=== PATIENT | female | born 1950 | race Caucasian/White ===

== ENCOUNTER → 2019-08-03 | Day surgery (SDC) | payer OTHER ==
--- NOTE | 2019-08-03 12:50 | RAD REPORT ---
EXAM DESCRIPTION: US - Breast Core BX w/US Guidance - 08/03/2019 12:24 pm CLINICAL HISTORY: N63.0 COMPARISON: Breast ultrasound July 25, 2019 TECHNIQUE: The patient presents for ultrasound-guided biopsy of a previously detailed 2 centimeter m ass in the upper outer quadrant right breast. The ultrasound-guided core biopsy procedure, risks and alternatives were discussed with the patient i n detail. After answering all questions, both oral and written consent were obtained. Time out proced ure was performed. The patient had no contraindicated allergy or medication history. Preliminary imaging identified the right breast mass. The anterior breast was prepped and draped in t he usual sterile fashion. From a lateral approach, skin and deeper tissues were anesthetized with 1% lidocaine. Under direct sonographic visualization a 14 gauge vacuum assisted core biopsy needle was a dvanced and placed at the lateral margin of the mass. There were a total of 3 core biopsies obtained under direct sonographic guidance. The mass did appear to have distortion in contour supporting trans it of the biopsy needle through the small mass. At the conclusion of the procedure a localization clip was placed under sonographic guidance. Post biopsy imaging showed no hematoma or measurable bleeding within the breast. Hemostasis was obtai jesse at the skin site with a sterile bandage placed. Post procedure care and precaution instructions were given to the patient. IMPRESSION: 1. Ultrasound-guided core biopsy was performed of the right breast upper-outer quadrant mass. All obtained material was given to pathology for histologic assessment. 2. Post biopsy localization clip was placed under ultrasound guidance.
== END ==
LOC: RAD 10:56
PROVIDERS: ATTEND Physician Assistant
DX: C50.411 Malignant neoplasm of upper-outer quadrant of right female breast (principal); Z17.0 Estrogen receptor positive status [ER+]
CPT/HCPCS: 19083; 88305

== ENCOUNTER 2020-03-29 13:50 | Emergency (ER) | payer OTHER ==
--- OUTSIDE RECORDS SUMMARY | 2020-03-29 13:54 | XMS REPORT | Continuity of Care Document ---
:1950 Author Organization [facility] t Address [address] Ramirez [address] [place] [address] Care Team Providers Name Role Phone Shekhar SAUCEDO Primary Care Physician Unavailable ROLAND Attending Clinician Unavailable Roland FU Attending Clinician Shekhar SAUCEDO Attending Clinician Unavailable Shekhar Saucedo MD Attending Clinician Tyrone Silva RN Attending Clinician Unavailable Ginger Finn MD Attending Clinician GINGER FINN Attending Clinician Unavailable Marybeth Ledbetter Attending Clinician Salena Ulloa NP Attending Clinician Hyun FU Attending Clinician Brunilda FU Attending Clinician Marybeth Mccarthy RN Attending Clinician Unavailable Osito GONZALEZ Attending Clinician Faye FU Attending Clinician Tete FU Attending Clinician Unavailable Harjeet Back Attending Clinician Yari GONZALEZ Attending Clinician Ozzy Crawford MD Attending Clinician Arabella Ghotra MA Attending Clinician Unavailable Nan GONZALEZ Attending Clinician Nathalie GONZALEZ Attending Clinician Dedra Mcneill NP Attending Clinician Reji FU Attending Clinician Adrian OJEDA, Tyrone Attending Clinician Pancho CARVAJAL, M Attending Clinician Douglas FU Attending Clinician Deepak OWENS, A. Attending Clinician Dedra Chappell MD Attending Clinician Payers Payer Name Policy Type Policy Number Effective Date Expiration Date S isidro MEDICARE PART A AND [id number] 2017 B 00:00:00 AETNA NON [id number] 2000 CONTRACTED 00:00:00 Problems Condition Condition Condition Status Onset Resolution Last Treating Co mments Source Name Details Category Date Date Treatment Clinician Date Encounter Encounter Disease Active for for 2-11 Anderso preprocedu preprocedu 00:00: n ral ral 00 examinatio examinatio n n Sleep Sleep Disease Active Overview: apnea apnea 2-11 Intoleran Anderso 00:00: t to CPAP n 00 Dyslipidem Dyslipidem Disease Active Overview : ia ia 2-11 Intoleran Anderso 00:00: t to n 00 statinsOn Niacin Hypothyroi Hypothyroi Disease Active 2019-0 M D dism dism 10-10 Anderso 00:00: n 00 Type 2 Type 2 Disease Active Overview: diabetes diabetes 2-11 HgbA1c Esvin o mellitus mellitus 00:00: 6.4 n 00 10/10/2019 Cancer of Cancer of Disease Active Overview: upper-oute upper-oute 1-15 Added An derso r quadrant r quadrant 00:00: automatic n of right of right 00 ally from female female request breast breast for surgery [id number] 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 Family History Family Member Diagnosis Comments Start Date Stop Date Source Natural brother Adrenal tumor MD Paulson wesleyharlan Natural brother Lung cancer Rodrigue son Natural father Brain cancer Rodrigue son Natural mother Leukemia MD Jeannie augustine Family member Bleeding Disorder MD Martino nderson Family member Coronary artery disease MD Mcclendon Family member Diabetes MD Mcclendon Family member Hypertension MD Mcallister on Family member Stroke MD Mcclendon Family member VTE MD Mcclendon Social History Social Habit Start Date Stop Date Quantity Comments Source History [facility] MD Mcclendon Alcohol Std Drinks History [facility] MD Mcclendon Alcohol Binge Sex Assigned At MD Mcallister on Exposure to Not sure MD Mcclendon SARS-CoV-2 (event) Tobacco use and 2020-01-20 2020-01-20 Never used MD Mcallister on exposure 00:00:00 00:00:00 Alcohol intake 2020-01-20 2020-01-20 Lifetime MD Jeannie augustine 00:00:00 00:00:00 non-drinker (finding) History [facility] 2019-09-12 2019-09-12 1 MD Mcclendon Alcohol Frequency 00:00:00 00:00:00 Smoking Status Start Date Stop Date Source Never smoker MD Mcclendon Medications Ordered Filled Start Stop Current Ordering Indication Dosage Frequency Signature Comments Components Source Medication Medication Date Date Medication? Clinician (SIG) Name Name acetaminoph 2020-0 Yes 500mg Take 500 M D en 7-09 mg by Anderso (TYLENOL) 18:46: mouth n 500 mg 53 every 6 tablet (six) hours as needed for mild pain. niacin 500 2019-0 Yes 500mg Take 500 MD mg tablet 7-09 mg by Anderso 18:46: mouth n 53 daily with breakfast. UNABLE TO 2020-0 Yes 1{capsu Take 1 MD FIND 7-09 le} capsule by Anderso 18:46: mouth n 53 daily. Med Name: Tumeric traMADol 2020-0 Yes 50mg Take 50 mg MD (ULTRAM) 50 7-09 by mouth 2 An derso mg tablet 18:46: (two) n 53 times a day as needed. TURMERIC 2020-0 Yes 1{capsu Take 1 MD ORAL 7-09 le} capsule by Anderso 18:46: mouth n 53 daily. anastrozole 2020-0 Yes Personal 1mg Take 1 MD (ARIMIDEX) 5-26 history of tablet (1 Anderso 1 mg tablet 00:00: malignant mg) by n 00 neoplasm of mouth breast daily. anastrozole 2019- No Personal 1mg Take 1 MD (ARIMIDEX) 5- 05-26 history of tablet (1 Anderso 1 mg tablet 00:00: 00:00 malignant mg) by n 00 :00 neoplasm of mouth breast daily. anastrozole 2019- No Personal 1mg Take 1 MD (ARIMIDEX) 3 05-26 history of tablet (1 Anderso 1 mg tablet 00:00: 00:00 malignant mg) by n 00 :00 neoplasm of mouth breast daily. HYDROcodone 2019-0 Yes Infiltratin 1{tbl} Take 1 MD -acetaminop 3-13 g duct tablet by A davidrshyacinth romero ([employer]) 00:00: carcinoma mouth n 5 mg-325 mg 00 of every 6 per tablet overlapping (six) sites of hours as right needed for female moderate breast pain. mupirocin Yes Cancer of Apply MD (BACTROBAN) 2-25 upper-outer topically Anderso 2% ointment 00:00: quadrant of to n 00 right affected female area(s) breast, not twice otherwise daily. specified traMADol 2019- No 1{tbl} Take 1 MD (ULTRAM) 50 2-21 03-13 tablet by An derso mg tablet 00:00: 00:00 mouth 2 n 00 :00 (two) times a day as needed. HYDROcodone 2019- No Cancer of 1{tbl} Take 1 MD -acetaminop 2-14 02-25 upper-outer tablet by Anderso hen ([employer]) 00:00: 00:00 quadrant of mouth n 5 mg-325 mg 00 :00 right every 6 per tablet female (six) breast, not hours as otherwise needed for specified severe pain. sulfamethox 2019- No Cancer of 1{tbl} Take 1 MD azole-trime 2-14 02-20 upper-outer tablet by Anderso thoprim 00:00: 05:59 quadrant of mouth n (Bactrim 00 :00 right twice DS) 800 female daily for mg-160 mg breast, not 5 days. per tablet otherwise specified traMADol No Infiltratin 50mg Take 1 MD (ULTRAM) 50 2-14 02-14 g duct tablet (50 Anderso mg tablet 00:00: 00:00 carcinoma mg) by n 00 :00 of mouth overlapping every 6 sites of (six) right hours as female needed for breast severe pain. traMADol 2019- No 1{tbl} Take 1 MD (ULTRAM) 50 1-03 02-15 tablet by An derso mg tablet 00:00: 00:00 mouth n 00 :00 daily. gabapentin 2018-08 Yes 1{tbl} Take 1 MD (NEURONTIN) 1-26 tablet by And erso 600 mg 00:00: mouth 3 n tablet 00 (three) times a day. levothyroxi 2018-08 Yes 1{tbl} Take 1 MD ne 1-22 tablet by Anderso (SYNTHROID, 00:00: mouth n LEVOTHROID) 00 daily. 125 mcg tablet FARXIGA 5 Yes 5mg Take 5 mg MD mg tab 2-22 by mouth Anderso 00:00: daily. n 00 Vital Signs Vital Name Observation Time Observation Value Comments Source Systolic blood pressure 2020-03-07 18:28:26 158 mm[Hg] MD Mcclendon Diastolic blood pressure 2020-03-07 18:28:26 81 mm[Hg] MD Mcclendon Heart rate 2020-03-07 18:28:26 75 /min MD Rodrigue owen Body temperature 2020-03-07 18:28:26 36.61 Anson MD Salena delatorre Respiratory rate 2019-11-21 13:06:00 17 /min MD Salena delatorre Body weight 2019-11-21 13:06:00 83.6 kg MD Rodrigue owen BMI 2019-11-21 13:06:00 29.80 kg/m2 MD Rodrigue owen Oxygen saturation in 2019-11-21 13:06:00 98 /min MD Mcclendon Arterial blood by Pulse oximetry Body height 2019-10-12 20:02:54 167.5 cm MD Rodrigue owen Procedures Procedure Date / Time Performed Performing Clinician [facility] e SURGICAL HISTORIC 2019-11-10 17:00:00 Conversion, Pathology MD Salena delatorre POC GLUCOSE SCREEN 2019-11-10 13:55:00 Janak Worley MD PATHOLOGY SURGICAL SPECIMEN 2019-11-10 12:54:48 Janak Worley MD INTERPRETATION POC GLUCOSE SCREEN 2019-11-10 11:53:00 Janak Worley MD Rodrigue son SEGMENTAL MASTECTOMY - OTHER 2019-11-10 11:45:00 Ansley Worley MD REARRANGEMENT OF ADJACENT 2019-11-10 11:45:00 Daisha Watkins MD TISSUE FOR REPAIR OF DEFECT OF TRUNK ALKALINE PHOSPHATASE 2019-11-07 11:31:00 Melissa Palacio ALANINE AMINOTRANSFERASE 2019-11-07 11:31:00 Melissa Palacio MD ASPARTATE AMINOTRANSFERASE 2019-11-07 11:31:00 Dee Palacio MD BILIRUBIN TOTAL 2019-11-07 11:31:00 Melissa Palacio MD And erson BLOOD UREA NITROGEN 2019-11-07 11:31:00 Melissa Palacio MD CANCER ANTIGEN 15-3 2019-11-07 11:31:00 Melissa Palacio MD CALCIUM LEVEL TOTAL 2019-11-07 11:31:00 Melissa Palacio MD COMPLETE BLOOD COUNT W/ 2019-11-07 11:31:00 Melissa Palacio MD DIFFERENTIAL SERUM CREATININE 2019-11-07 11:31:00 Melissa Palacio MDson ELECTROLYTE PANEL 2019-11-07 11:31:00 Melissa Palacio MD nderson GLUCOSE, FASTING 2019-11-07 11:31:00 Melissa Palacio MDson MAGNESIUM LEVEL 2019-11-07 11:31:00 Melissa Palacio MD And erson PHOSPHORUS LEVEL 2019-11-07 11:31:00 Melissa Palacio MD SERUM CREATININE 2019-11-07 11:31:00 Melissa Palacio MD .GLOMERULAR FILTRATION RATE 2019-11-07 11:31:00 Corazon Palacio MD Results CBC 2019-11-07 11:31:00 Melissa Palacio MD And erson MANUAL DIFFERENTIAL 2019-11-07 11:31:00 Melissa Palacio MD PATHOLOGY REQUISITION 2019-11-01 00:00:00 Colton Saucedo MD And erson ARCHIVED MATERIAL RETRIEVAL 2019-10-27 00:00:00 Colton Saucedo MD POC GLUCOSE SCREEN 2019-10-13 21:40:00 Janak Worley MD HP CG HER2 FISH FINAL REPORT 2019-10-13 18:33:00 Gissell Louis Ch, MD SURGICAL HISTORIC 2019-10-13 18:00:00 Conversion, Pathology MD Salena delatorre PATHOLOGY SURGICAL SPECIMEN 2019-10-13 17:19:00 Janak Worley MD INTERPRETATION SEGMENTAL MASTECTOMY - SEED 2019-10-13 16:11:00 Janak Worley MD LOC INTRAOPERATIVE LYMPHATIC 2019-10-13 16:11:00 Janak Worley MD MAPPING SENTINEL NODE BIOPSY - AXILLA 2019-10-13 16:11:00 Marquita Worley MD MASTOPEXY 2019-10-13 16:11:00 Daisha Watkins MD POC GLUCOSE SCREEN 2019-10-13 14:57:00 Janak Worley MD BREAST SPECIMEN RADIOGRAPH 2019-10-13 14:27:08 Sasha Mcneill NM LYMPHOSCINTIGRAPHY BREAST 2019-10-12 23:22:33 Sasha Mcneill MD SULFUR COLLOID US GUIDED BREAST SEED 2019-10-11 20:07:09 Sasha Mcneill MD And erson PLACEMENT RIGHT COMPLETE BLOOD COUNT W/ 2019-10-10 19:41:00 Sasha Mcneill MD DIFFERENTIAL COMPREHENSIVE METABOLIC PANEL 2019-10-10 19:41:00 Sasha Mcneill MD PARTIAL THROMBOPLASTIN TIME 2019-10-10 19:41:00 Sasha Mcneill MD PROTHROMBIN TIME 2019-10-10 19:41:00 Sasha Mcneill MD THYROID STIMULATING HORMONE 2019-10-10 19:41:00 Tatiana Deleon MD FREE THYROXINE 2019-10-10 19:41:00 Tatiana Deleon MD Results CBC 2019-10-10 19:41:00 Sasha Mcneill MD MANUAL DIFFERENTIAL 2019-10-10 19:41:00 Sasha Mcneill MD Rodriguerosa owen GLUCOSE LEVEL 2019-10-10 19:41:00 Sasha Mcneill MD BLOOD UREA NITROGEN 2019-10-10 19:41:00 Sasha Mcneill MD Rodrigue owen ELECTROLYTE PANEL 2019-10-10 19:41:00 Sasha Mcneill MD Esvino n SERUM CREATININE 2019-10-10 19:41:00 Sasha Mcneill MD .GLOMERULAR FILTRATION RATE 2019-10-10 19:41:00 Sasha Mcneill MD CALCIUM LEVEL TOTAL 2019-10-10 19:41:00 Sasha Mcneill MD Rodrigue owen ALBUMIN LEVEL 2019-10-10 19:41:00 Sasha Mcneill MD ALKALINE PHOSPHATASE 2019-10-10 19:41:00 Sasha Mcneill MD Byron rson ALANINE AMINOTRANSFERASE 2019-10-10 19:41:00 Sasha Mcneill MD ASPARTATE AMINOTRANSFERASE 2019-10-10 19:41:00 Sasha Mcneill TOTAL PROTEIN 2019-10-10 19:41:00 Sasha Mcneill MD FRACTIONATED BILIRUBIN 2019-10-10 19:41:00 Sasha Mcneill MD An derson XR CHEST 2 VW 2019-10-10 19:35:08 Sasha Mcneill MD POC GLYCOHEMOGLOBIN A1C 2019-10-10 14:35:00 Provider, Scotty Mcclednon EKG, 12-LEAD (SCHEDULED) 2019-10-10 00:00:00 Sasha Mcneill MD US FNA HISTORIC 2019-09-12 18:00:00 Conversion, Pathology And wesleyon US BREAST COMPLETE RIGHT 2019-09-12 17:57:24 Sasha Mcneill MD US CHEST 2019-09-12 17:57:24 Sasha Mcneill MD US BREAST FINE NEEDLE 2019-09-12 17:57:24 Sasha Mcneill MD And wesleyon ASPIRATION - RIGHT US GUIDED BREAST CLIP 2019-09-12 17:57:24 Sasha Mcneill MD And erson PLACEMENT RIGHT MAMMO DIGITAL DIAGNOSTIC 2019-09-12 15:09:57 Sasha Mcneill MD BILATERAL CYTOPATHOLOGY IMAGE-GUIDED FNA 2019-09-12 00:00:00 Sasha Mcneill MD INTERPRETATION OUTSIDE REFERRAL 2019-09-06 00:00:00 System, Provider Not And erson In OUTSIDE REFERRAL HISTORIC 2019-08-03 18:00:00 Conversion, Pathol deven Mcclendon OSI US BREAST BIOPSY 2019-08-03 15:28:32 Janak Worley MD And erson OSI US BREAST 2019-07-25 15:27:47 Janak Worley MD OSI MRI SPINE 2019-05-03 14:27:33 Janak Worley MD Encounters Start End Encounter Admission Attending Care Care Encounter Source Date/Time Date/Time Type Type Clinicians Facility Department ID 2020-03-07 2020-03-07 Outpatient EL WATKINSDAISHA Martino MDA MDA [id number] 13:17:11 14:10:56 Esvin augustine 2020-02-19 2020-02-19 Outpatient EL MARÍA, MDA MDA [id number] 07:45:00 23:59:00 COLTON augustine 2020-02-19 2020-02-19 Outpatient EL MARÍA, MDA MDA [id number] 07:29:03 07:44:00 COLTON augustine 2020-02-19 2020-02-19 Outpatient EL MARÍA, MDA MDA [id number] 07:24:17 07:28:00 COLTON augustine 2020-02-16 2020-02-16 Outpatient EL MARÍA, MDA MDA [id number] MD 07:27:35 23:59:00 COLTON augustine 2020-02-15 2020-02-15 Outpatient EL AMRÍA, MDA MDA [id number] 07:52:44 23:59:00 COLTON augustine 2020-02-14 2020-02-14 Outpatient EL MARÍA, MDA MDA [id number] 07:43:36 23:59:00 COLTON augustine 2020-02-13 2020-02-13 Outpatient EL TOM, MDA MDA [id number] 08:51:50 23:59:00 MARY augustine 2020-02-12 2020-02-12 Outpatient EL MARÍA, MDA MDA [id number] 07:32:25 23:59:00 COLTON augustine 2020-02-12 2020-02-12 Outpatient EL MARÍA, MDA MDA [id number] 07:30:00 07:31:00 COLTON augustine 2020-02-09 2020-02-09 Outpatient EL MARÍA, MDA MDA [id number] 07:56:22 23:59:00 COLTON augustine 2020-02-08 2020-02-08 Outpatient EL MARÍA, MDA MDA [id number] 07:37:08 23:59:00 COLTON augustine Results Test Description Test Time Test Comments Results Result Comments Source POC Glucose Screen 2019-11-10 14:00:53 Test Item Value Reference Range Interpretation Comme nts POC Glucose (test code = 108 mg/dL 70-99 H RN NotifiedCapillary blood samples, 50987-8) e.g. obtained b y fingerstick, may have inaccurate results in patients with decreased peripheral blood flow. PO Sample Type (test code = Capillary 9554) Lab Interpretation (test code = Abnormal 87835-7) MD McclendonAlkaline [id number] 15:48:04 Test Item Value Reference Range Interpretation Comments Alk Phos (test code = 4768) 70 U/L 35-104 MD McclendonCA [id number] 12:36:15 Test Item Value Reference Range Interpretation Comments CA 15-3 (test code = 27.0 U/mL <=25.0 H Testing Performed at 5170) [facility], [address], [place] [address] Lab Interpretation (test Abnormal code = 99216-8) MD McclendonGlomerular Filtration [id number] 12:32:28 Test Item Value Reference Range Interpretation Comments eGFR-AA (test 113 >=60 mL/min/1.73 sq. Normal eGFR >= 60 code = 8062) m mL/min/1.73 m2 Note: The eGFR is calcula bibi using the CKD-EPI equ ation. The eGFR declines w ith age. eGFR <60 mL/min /1.73 m2 is considered as " decreased". This equation s hould only be used for pat ients 18 and older. Acco rding to the National Ki dney Foundation's dney Disease Outcome Quality Initiative (KDO QI) classification and 2012 Kidney Disease Improving Global Outcomes (KDIGO) Clinical Practi ce Guideline, the stage of CKD should be c ategorized based on estima bibi GFR. Stage Descripti on GFR mL/min/1.73 m21 Normal or high GFR >=902 Mildly de creased GFR 60-893a Mildly to moder ately decreased GFR 45-593b Moderately to s everely decreased GFR 30-444 Severely decrea sed GFR 15-295 Kidney failure <15 Testing Performed at [facility] Lab [facility], [address], [place] [address] eGFR-CHRISTOPHER (test 98 >=60 mL/min/1.73 sq. Ivette l eGFR >= 60 code = 8063) m mL/min/1.73 m2 Note: The eGFR is calcula bibi using the CKD-EPI equ ation. The eGFR declines w ith age. eGFR <60 mL/min /1.73 m2 is considered as " decreased". This equation s hould only be used for pat ients 18 and older. Acco rding to the National dney Foundation's dney Disease Outcome Quality Initiative (KDO QI) classification and 2012 Kidney Disease Improving Global Outcomes (KDIGO) Clinical Practi ce Guideline, the stage of CKD should be c ategorized based on estima bibi GFR. Stage Descripti on GFR mL/min/1.73 m21 Normal or high GFR >=902 Mildly de creased GFR 60-893a Mildly to moder ately decreased GFR 45-593b Moderately to s everely decreased GFR 30-444 Severely decrea sed GFR 15-295 Kidney failure <15 Testing Performed at [facility] Lab [facility], [address], [place] [address] MD McclendonGlucose, [id number] 12:32:27 Test Item Value Reference Range Interpretation Comments Glucose Fasting (test 115 mg/dL 70-99 H Impair ed fasting code = 5698) glucose (increa sed risk for diabet es or prediabetes): 1 00 125 mg/dLDiabe shadi mellitus: 126 mg/dL Testing Perform ed at [facility] Lab [facility], [address], [place] [address] Lab Interpretation (test Abnormal code = 23060-9) MD McclendonPhosphorus [id number] 12:32:26 Test Item Value Reference Range Interpretation Comments Phosphorus (test code 3.6 mg/dL 2.5-4.5 Testin g Performed at = 6817) [facility], [address], [address], [place] [address] MD McclendonMagnesium [id number] 12:32:25 Test Item Value Reference Range Interpretation Comments Magnesium (test code = 2.1 mg/dL 1.6-2.6 Testi ng Performed at 6359) [facility] Lab [facility], [address], [place] [address] MD McclendonCalcium [id number] 12:32:24 Test Item Value Reference Range Interpretation Comments Calcium Lvl (test 9.3 mg/dL 8.4-10.2 Testing Pe rformed at code = 5258) [facility], [address], [place] [address] MD McclendonBilirubin [id number] 12:32:23 Test Item Value Reference Range Interpretation Comments Bili Total (test 0.3 mg/dL <=1.2 Testing Per formed at B code = 5096) Lab [employer] [facility], [address], [place] [address] MD McclendonAspartate [id number] 12:32:22 Test Item Value Reference Range Interpretation Comments AST (test code = 15 U/L <=32 Testing Per formed at B 4731) Lab [employer] [facility], [address], [place] [address] MD [id number] 12:32:21 Test Item Value Reference Range Interpretation Comments ALT (test code = 11 U/L <=33 Testing Per formed at [facility] 4705) Lab [employer], [address], [place] [address] MD McclendonElectrolyte [id number] 12:32:20 Test Item Value Reference Range Interpretation Comments Sodium Lvl (test code = 141 136- 145 mEq/L Te sting Performed at B 9735) Lab [employer] [facility], [address], [place] [address] Potassium Lvl (test code 3.5 3.5- 5.1 mEq/L T esting Performed at B = 7193) Lab [employer], [address], [place] [address] Chloride (test code = 102 98- 107 mEq/L Testi ng Performed at [facility] 5279) [facility], [address], [place] [address] CO2 (test code = 5227) 25 22- 29 mEq/L Testi ng Performed at [facility] Lab [facility], [address], [place] [address] Anion Gap (test code = 14 4- 14 mEq/L Testi ng Performed at [facility] 9325) [facility], [address], [place] [address] MD Mcclendon.Serum [id number] 12:32:19 Test Item Value Reference Range Interpretation Comments Creatinine (test code 0.54 mg/dL 0.51-0.95 Testin g Performed at = 5399) [facility], [address], [place] [address] MD [id number] 12:32:17 Test Item Value Reference Range Interpretation Comments BUN (test code = 10 mg/dL 6-23 Testing Per formed at [facility] 5055) [facility], [address] [place] [address] [address], [address], [place] [address] MD Mcc[id number] 11:43:25 Test Item Value Reference Range Interpretation Comments Neutrophil % (test code 48.9 % 42-66 As p art of = 6491) Differential performed at [facility], [address], [place] [address] Lymphocyte % (test code 38.8 % 24-44 = 6194) Monocyte % (test code = 8.5 % 2-7 H 6422) Eosinophil % (test code 3.1 % 1-4 = 5520) Basophil % (test code = 0.4 % 0-1 5068) IGRE % (test code = 0.3 % 0-0.4 IGRE % c ount includes 5958) Metamyelocytes, Myelocytes, and Promyelocytes. As part of Differe ntial performed at [facility], [place] [address] Neutrophil Abs (test 6.83 K/uL 1.7-7.3 code = 6492) Lymphocyte Abs (test 5.42 K/uL 1-4.8 H code = 6195) Monocyte Abs (test code 1.19 K/uL 0.08-0.7 H = 6423) Eosinophil Abs (test 0.43 K/uL 0.04-0.4 H code = 5521) Basophil Abs (test code 0.05 K/uL 0-0.1 = 5069) IG Abs (test code = 0.04 K/uL 0-0.04 5954) Lab Interpretation Abnormal (test code = 61052-7) MD Mcclendon.[id number] 11:43:23 Test Item Value Reference Range Interpretation Comments WBC (test code = 8034) 14.0 K/uL 4-11 H RBC (test code = 6932) 4.25 4.00- 5.50 M/uL Hgb (test code = 5898) 12.5 12.0- 16.0 gm/dL A s part of CBC or as an individual orderable testi ng performed at [facility] [employer] [facility], [address], [place] [address] Hct (test code = 5860) 39.0 % 37-47 As pa rt of CBC or as an individual orderable testi ng performed at [facility] [employer] [facility], [address], [place] [address] MCV (test code = 6222) 92 fL 82-98 MCH (test code = 6220) 29.4 pg 27-31 MCHC (test code = 32.1 31.0- 36.0 gm/dL 6221) RDW-SD (test code = 45.9 fL 35.1-46.3 6972) RDW-CV (test code = 13.4 % 12-15.5 6971) Platelet count (test 265 K/uL 140-440 As part of CBC or as code = 6832) an individual orderable testi ng performed at [facility] [employer] [facility], [address], [place] [address] MPV (test code = 6282) 10.7 fL 4-10.4 H INRBC (test code = 0.0 % <=0.0 The INRBC (instrument 5974) NRBC) value ref lects the enumeration of nucleated red b lood cells contained in a 200uL sampleof whole blood analyzed by the instrument. Thi s value maydiffer from the NRBC value reported in a m anual differential,wh ich is based on a 100 cell differential. A s part of CBC testing performed at [facility] [employer] [address], [place], [place] [address] Lab Interpretation Abnormal (test code = 89373-9) MD McclendonBreast Specimen [id number] 18:36:31Right breast whole and sliced segmental resection specimen radiographs were obtained for radiologic p athologic correlation. Interface, Radiology Results In - 10/13/2019 12:38 PM CSTFULL RESULT:Examination: Specimen Radiograph 10/13/2019 8:27 AMClinical History: Patient with breast cancer.Indication: Breast cancer.Comparison: Mammogram 10/11/2019 and 09/12/2019. Technique: Right breast breast whole and sl iced segmental resection specimen radiographs were submitted for radiologic pathologic correlation.Findings: The areas of increased density, calcifications, 2 mag seeds and 2 postbiopsy clips were identified.Findings were electronically annotated and discussed with the pathologist, Dr Botello at the timeof this dictation.IMPRESSION:Right breast whole and sliced segmental resection specimen radiographs were obtained for radiologic pathologic correlation.MD McclendonNM Lymphoscintigraphy Breast Sulfur [id number] 23:36:07Draining node in the right axilla. Interface, Radiology Results In - 10/12/2019 5:38 PM CSTFULL RES ULT:Examination: Breast Lymphoscintigraphy, 10/12/2019 5:22 PMClinical History: 69-year-old female with right breast carcinomaIndication: Lymphatic mapping for sentinel lymph node localization.Comparison: None.Technique: The patient was injected with 2.75 mCi of filtered technetium-99m sulfur colloid in the right breast x1. Multiple delayed images of the thorax were obtained in various projections at 2 and 5.5 hours postinjection.Findings: A focus of intense radiotracer activity is seen in the right breast at the site of injection. A separate focus of activity is seen in the right axilla representing the draining node.IMPRESSION:Draining node in the right axilla.MD McclendonUS Breast Seed Placement - [id number] 20:51:30 Technically successful ultrasound-guided magnetic seed localization of the known malignancy within the right breast at 10 o'clock, 17 cm from the nipple, and the biopsy-proven atypical papillary lesion at 10 o'clock, 11 cm from the nipple. Two magnetic seeds were placed at the time of localization. Ipersonally reviewed these image(s) along with the resident's/fellow's interpretations, certify that if a procedure was performed I was physically present, and agree with the final report.Interface, Radiology Results In - 10/11/2019 2:53 PM CSTExamination: ULTRASOUND-GUIDED RIGHT BREAST MAGNETIC SEED PLACEMENTS 10/11/2019 Clinical History: The patient is a 69-year-old woman with right breast invasiveductal carcinoma at 10 o'clock, 17 cm from the nipple, and an atypical papillary lesion at 10 o'clock, 11 cm from the nipple, presenting for ultrasound-guided magnetic seed localization.Indication: Right breast 10:00 invasive ductal carcinoma, and also in the right breast 10:00 region, there was an atypical papillary lesion. The patient was scheduled for 2 right breast ultrasound-guided magnetic seed placements in the 10:00 region.Comparison: Comparison was made to the mammograms and the ultrasound dated 09/12/2019. Technique: Targeted ultrasound was performed of the lesions of interest in the rightbreast at 10:00 to guide localization.Findings:The biopsy-proven atypical papillary lesion within the right breast at 10 o'clock, 11 cm from the nipple, was again identified as a 1.4 cm hypoechoic ovalmass with an in situ post-biopsy clip marker, and this lesion was targeted for ultrasound-guided magnetic seed (#1) placement.The known right breast malignancy at 10 o'clock, 17 cm from the nipple, wasagain identified as a 2.3 cm irregular hypoechoic mass with an in situ post-biopsy clip. This malignancy was targeted for ultrasound-guided magnetic seed (#2) placement.Procedure: Ultrasound-Guided Right Breast MagSeed Localizations Primary Proceduralist: Dr. Gilbert Pineda.Dividing Machine Operator: Dr. Angelina Prince: The consent for magnetic seed placement was performed by the referring surgical team. The presence of the signed electronic consent form in the patient's electronic health record was confirmed prior to the procedure. Procedure in Detail: A time-out was performed prior to the start of the procedure and the correct patient, procedure, presence of consent, site, and side were confirmed with all members of the team. The skin was prepped in the usual sterile fashion with chlorhexidine. Lidocaine (1%) was administered for local anesthesia at both sites. Two magnetic seeds in preloaded sterile needles were advanced into the lesions of interest within the right breast at 10 o'clock. After adjustment of the needle tips, magnetic seed deployment was performed. Magnetic seed #1 was located in the biopsy-proven atypical papillary lesion at 10 o'clock, 11 cm from the nipple, and magnetic seed #2 was located in the biopsy-proven IDC at 10 o'clock, 17 cm from the nipple. Post-procedure Mammography: Post-procedure mammography was performed and the magnetic seed locations were confirmed. A diagram was drawn depicting the relationship of the magnetic seeds and the localized lesions. The diagram was uploaded in the patient's electronic health record. Estimated Blood Loss: Minimal.Specimen Removed: No.Immediate Complications: None.Post-procedure diagnosis: Right breast invasive ductal carcinoma in the 10:00 region and an atypical papillary lesion in the right breast 10:00 region.Disposition: The patient tolerated the procedure well and was discharged to the next clinical appointment in excellent condi tion.IMPRESSION:Technically successful ultrasound-guided magnetic seed localization of the known malignancy within the right breast at 10 o'clock, 17 cm from the nipple, and the biopsy-proven atypical papillary lesion at 10 o'clock, 11 cm from the nipple. Two magnetic seeds were placed at the time of l ocalization.I personally reviewed these image(s) along with the resident's/fellow's interpretations,certify that if a procedure was performed I was physically present, and agree with the final report.MD McclendonPartial Thromboplastin [id number] 20:35:27 Test Item Value Reference Range Interpretation Comments PTT (test code = 32.8 25.5- 37.6 second(s) Shadi ting Performed atACB 89078-4) Lab Foreign Student Adviser Teacher [id number] [facility], [address] [place] [address] ,[place] [address]HXHD Licen se: [id number] MD McclendonProthrombin Time with [id number] 20:35:26 Test Item Value Reference Range Interpretation Comments PT (test code = 12.4 11.6- 14.0 second(s) Test ing Performed atACB 5902-2) Lab Foreign Student Adviser Teacher [id number] [facility], [address] [place] [id number] INR (test code = 0.91 0.90-1.10 Testing Per formed atACB 6301-6) Lab Foreign Student Adviser Teacher [address], [address] [place] [address] MD McclendonFree [id number] 20:27:58 Test Item Value Reference Range Interpretation Comments T4 Free (test code 1.54 ng/dL 0.93-1.7 Testing P erformed at [facility] = 7502) [facility], [address] [place] [address], [address], [place] [address] MD [id number] 20:27:57 Test Item Value Reference Range Interpretation Comments TSH (test code = 2.21 0.27- 4.20 mcunit/mL Not e: New Methodology 7578) and Reference R krista change effectiv e 12/16/2017 at 14 [address] Performed at [facility] Foreign Student Adviser Teacher Bldg, [address] [place] [address] [address], [address], [place] [address] MD McclendonFractionated [id number] 20:16:10 Test Item Value Reference Range Interpretation Comments Bili Total (test code 0.4 mg/dL <=1.2 Testin g Performed at = 5096) [facility], [address] [place] [address], [address], [place], [place] [address] Bili Direct (test 0.1 mg/dL <=0.3 Indocyanin e Green (ICG) code = 5094) may cause false ly elevated biliru bin results. Total and direct bilirubi n must not be measured from samples contain ing indocyanine gre en. Testing Perform ed at [facility], [address] [place] [address], [address], [place], [place] [address] Bili Indirect (test 0.3 mg/dL 0-0.9 Testing Performed at code = 5095) [facility], [address] [place] [address], [address], [place], [place] [address] MD McclendonTotal [id number] 20:16:08 Test Item Value Reference Range Interpretation Comments Total Protein (test 8.3 6.4- 8.3 gm/dL Testin g Performed at [facility] code = 7649) Lab Foreign Student Adviser Teacher [facility], [address], [address], [place] [address] MD McclendonAlbumin [id number] 20:16:05 Test Item Value Reference Range Interpretation Comments Albumin Lvl (test code 4.8 3.5- 5.2 gm/dL Shadi ting Performed at [facility] = 4763) Lab Foreign Student Adviser Teacher [facility], [address], [place] [address] HaaknGlucose [id number] 20:15:59 Test Item Value Reference Range Interpretation Comments Glucose Level (test code 110 mg/dL 70-99 H Ref erence range is = 5699) valid for fasti ng specimens only. Guidelines established by the [place] [employer] guidelines (Standards of Medical Care in Diabetes 2016. Diabetes Care 2 016; 39: S13-22) are that a fasting gluco se of greater than or equal to 126 mg /dL or a random glu cose greater than or equal to 200 mg /dL with symptoms, that are confirmed b y repeat testing on a different day, meet the criteria fo r diabetes mellit us. Testing Perform ed at [facility] Lab Ambulat ory [facility], [address], [address], [place] [address] Lab Interpretation (test Abnormal code = 35414-8) MD McclendonX-ray Chest 2 [id number] 19:39:50No evidence of acute complications or metastatic disease. Interface, Radiology Results In - 2019 1:41 PM CSTFULL RESULT:Examination: XR CHEST 2 VW, 10/10/2019 1:35 PMClinical History: Cancer of upper-outer quadrant of right female breast, not otherwise specifiedIndication: Other:, PreopComparison: NoneTechnique: Posteroanterior, lateral and dual-energy radiographs of the chest.Findings:The lungs are normal. There is no pleural effusion or pneumothorax. There is no mediastinal or hilar adenopathy. Cardiac silhouette is normal. Degenerative change of the thoracic spine. Old right rib fractures.IMPRESSION:No evidence of acute complications or metastatic disease.[facility] [id number] 15:00:41 Test Item Value Reference Range Interpretation Comments POC A1C (test code = 4548-4) 6.4 % 4.3-5.6 H Lab Interpretation (test code = Abnormal 73263-1) MD Cook Breast Complete [id number] 18:54:13Addendum by Josh Pro MD on 09/21/2019 7:52 AMBreast, right, FNA, 1.4 cm nodule, 10 o'clock position, 11 cm from nipple:Atypical papillary lesion (see comment)COMMENT: The sample is highly cellular and comprised of discohesive cells with mild to moderate nuclear atypia. Myoepithelial cells are not identified. The findings favor low grade papillary carcinoma. Breast, right, FNA, 0.6 cm nodule, 12 o'clock position, 8 cm from the nipple:Papillary lesionCOMMENT: The direct smears and cytospin preparation demonstrate abundant columnar epithelium without significant atypia in a proteinaceous background. The findings favor an intraductal papilloma. These results are concordant with imaging and were communicated through institutional email to Sasha Mcneill at time of addendum. 1. Known malignancy in the right breast at 10 o'clock with three suspicious masses between this finding and the nipple. The suspicious mass closest to the nipple was targeted by ultrasound-guided biopsy and preliminary cytology assessment demonstrated evidence of malignancy. 2. Technically successful ultrasound-guidedbiopsy of a right breast mass at 12 o'clock. The preliminary cytopathology assessment is benign. Thefinal result will be added as an addendum. 3. No suspicious right-sided lymphadenopathy is identified. ACR BI- RADS Category: 6. Known malignancy.Final biopsy results will be reported in an addendum. Interface, Radiology Results In - 09/12/2019 12:56 PM CSTFULL RESULT:Examination: US BREAST COMPLETE RIGHT, US GUIDED BREAST CLIP PLACEMENT RIGHT, US BREAST FINE NEEDLE ASPIRATION - RIGHT, US CHEST 09/12/2019 11:57 AMClinical History: 69-year-old woman with breast cancer.Indication: Breast cancer.Comparison: Breast ultrasound performed at outside facility 07/25/2019 and 08/03/2019. Mammogram 09/12/2019. Technique: Real-time sonographic imaging of the right breast (including all 4 quadrants andretroareolar region) was performed. Ultrasound imaging was performed of the right axilla (levels I, II, and III) and right chest/mediastinum (to evaluate the internal mammary lymph nodes). Images were obtained in multiple scanning planes.Findings: Right Breast:The known malignancy with marker clip at 10 o'clock, 17 cm from the nipple measures 2.3 x 1.7 x 1.2 cm.Three suspicious masses are located between the known malignancy and the nipple. The mass closest to the nipple at 10 o'clock, 11 cm from the nipple measuring 1.4 x 1 x 0.8 cm was selected for ultrasound-guided biopsy. This finding is approximately 4 cm from the index mass.The second suspicious mass at 10 o'clock measures 1.3 x 1 x 0.7 cm (located 1.6 cm from the index). The third suspicious mass at 10 o'clock measures 0.5 x 0.4 x 0.4 cm (located 1.3 cm from the index).A hypoechoic mass at 12 o'clock, 8 cm from the nipple measures 0.6 x 0.5 x 0.5 cm. This finding was selected for ultrasound-guided biopsy.Right Diane Basins:No suspicious axillary (level I, II & III) or internal mammary lymphadenopathy is noted.Procedure(s): Ultrasound -Guided Breast FNA Biopsy - Right at 12 o'clockUltrasound-Guided Breast FNA Biopsy and Breast Clip Placement - Right at 10 o'clockPrimary Proceduralist: Josh Pro MDAssistant: NoneConsent: The procedures, risks, indications, and alternatives were explained. All questions were answered and informed consent was obtained.Procedure(s) in Detail: A time-out was performed prior to the start of the procedures and the correct patient, procedures, presence of consent, sites, and side(s) were confirmed withall members of the team. The skin was prepped in the usual sterile fashion with chlorhexidine. Lidocaine 1 percent was administered for local anesthesia. Site #1: Under direct sonographic guidance, the right breast mass at 12 o'clock was sampled using a 21 gauge needle in a single pass. Cytopathologypreliminary assessment demonstrated adequate sampling without evidence of malignancy.Site #2: Under direct sonographic guidance, the the right breast mass of interest at 10 o'clock, 11 cm from the nipple was sampled using a 21 gauge needle in a single pass. Cytopathology preliminary assessment demonstrated evidence of malignancy. A [place] [facility] clip was then placed under sonographic guidance. Post-procedure Mammography: Post-procedure mammography was performed and shows the marker clip in expected position.Estimated Blood Loss: Minimal.Specimen(s) Removed: Yes.Immediate Complications: None.Pre-procedure diagnosis: Breast Cancer.Post- procedure diagnosis: Breast Cancer.Disposition: The patient tolerated the procedure well and was discharged to the next clinical appointment in good condition.IMPRESSION:1. Known malignancy in the right breast at 10 o'clock with three suspicious masses between this finding and the nipple. The suspicious mass closest to the nipple was targeted by ultrasound-guided biopsy and preliminary cytology assessment demonstrated evidence of malignancy.2. Technically successful ultrasound-guided biopsy of a right breast mass at 12 o'clock. The preliminary cytopathology assessment is benign. The final result will be added as an addendum.3. No suspicious right-sided lymphadenopathy is identified.ACR BI-RADS Category: 6. Known malignancy.Final biopsy results will be reported in an addendum.MD Cook [id number] 18:54:13Addendum by Josh Pro MD on 09/21/2019 7:52 AMBreast, right, FNA, 1.4 cm nodule, 10 o'clock position, 11 cm from nipple:Atypical papillary lesion (see comment)COMMENT: The sample is highly cellular and comprised of discohesive cells with mild to moderate nuclear atypia. Myoepithelial cells are not identified. The findings favor low grade papillary carcinoma. Breast, right, FNA, 0.6 cm nodule, 12 o'clock position, 8 cm from the nipple:Papillary lesionCOMMENT: The direct smears and cytospin preparation demonstrate abundant columnar epithelium without significant atypia in a proteinaceous background. The findings favor an intraductal papilloma. These results are concordant with imaging and were communicated through institutional email to Sasha Mcneill at time of addendum. 1. Known malignancy in the right breast at 10 o'clock with three suspicious masses between this finding and the nipple. The suspicious mass closest to the nipple was targeted by ultrasound-guided biopsy and preliminary cytology assessment demonstrated evidence of malignancy. 2. Technically successful ultrasound-guidedbiopsy of a right breast mass at 12 o'clock. The preliminary cytopathology assessment is benign. Thefinal result will be added as an addendum. 3. No suspicious right-sided lymphadenopathy is identified. ACR BI-RADS Category: 6. Known malignancy.Final biopsy results will be reported in an addendum. Interface, Radiology Results In - 09/12/2019 12:56 PM CSTFULL RESULT:Examination: US BREAST COMPLETE RIGHT, US GUIDED BREAST CLIP PLACEMENT RIGHT, US BREAST FINE NEEDLE ASPIRATION - RIGHT, US CHEST 09/12/2019 11:57 AMClinical History: 69-year-old woman with breast cancer.Indication: Breast cancer.Comparison: Breast ultrasound performed at outside facility 07/25/2019 and 08/03/2019. Mammogram 09/12/2019. Technique: Real-time sonographic imaging of the right breast (including all 4 quadrants andretroareolar region) was performed. Ultrasound imaging was performed of the right axilla (levels I, II, and III) and right chest/mediastinum (to evaluate the internal mammary lymph nodes). Images were obtained in multiple scanning planes.Findings: Right Breast:The known malignancy with marker clip at 10 o'clock, 17 cm from the nipple measures 2.3 x 1.7 x 1.2 cm.Three suspicious masses are located between the known malignancy and the nipple. The mass closest to the nipple at 10 o'clock, 11 cm from the nipple measuring 1.4 x 1 x 0.8 cm was selected for ultrasound-guided biopsy. This finding is approximately 4 cm from the index mass.The second suspicious mass at 10 o'clock measures 1.3 x 1 x 0.7 cm (located 1.6 cm from the index). The third suspicious mass at 10 o'clock measures 0.5 x 0.4 x 0.4 cm (located 1.3 cm from the index).A hypoechoic mass at 12 o'clock, 8 cm from the nipple measures 0.6 x 0.5 x 0.5 cm. This finding was selected for ultrasound-guided biopsy.Right Diane Basins:No suspicious axillary (level I, II & III) or internal mammary lymphadenopathy is noted.Procedure(s): Ultrasound -Guided Breast FNA Biopsy - Right at 12 o'clockUltrasound-Guided Breast FNA Biopsy and Breast Clip Placement - Right at 10 o'clockPrimary Proceduralist: Sanna Sinclairistant: NoneConsent: The procedures, risks, indications, and alternatives were explained. All questions were answered and informed consent was obtained.Procedure(s) in Detail: A time-out was performed prior to the start of the procedures and the correct patient, procedures, presence of consent, sites, and side(s) were confirmed withall members of the team. The skin was prepped in the usual sterile fashion with chlorhexidine. Lidocaine 1 percent was administered for local anesthesia. Site #1: Under direct sonographic guidance, the right breast mass at 12 o'clock was sampled using a 21 gauge needle in a single pass. Cytopathologypreliminary assessment demonstrated adequate sampling without evidence of malignancy.Site #2: Under direct sonographic guidance, the the right breast mass of interest at 10 o'clock, 11 cm from the nipple was sampled using a 21 gauge needle in a single pass. Cytopathology preliminary assessment demonstrated evidence of malignancy. A [place] [facility] clip was then placed under sonographic guidance. Post-procedure Mammography: Post-procedure mammography was performed and shows the marker clip in expected position.Estimated Blood Loss: Minimal.Specimen(s) Removed: Yes.Immediate Complications: None.Pre-procedure diagnosis: Breast Cancer.Post- procedure diagnosis: Breast Cancer.Disposition: The patient tolerated the procedure well and was discharged to the next clinical appointment in good condition.IMPRESSION:1. Known malignancy in the right breast at 10 o'clock with three suspicious masses between this finding and the nipple. The suspicious mass closest to the nipple was targeted by ultrasound-guided biopsy and preliminary cytology assessment demonstrated evidence of malignancy.2. Technically successful ultrasound-guided biopsy of a right breast mass at 12 o'clock. The preliminary cytopathology assessment is benign. The final result will be added as an addendum.3. No suspicious right-sided lymphadenopathy is identified.ACR BI-RADS Category: 6. Known malignancy.Final biopsy results will be reported in an addendum.MD McclendonUS Guided Breast Clip Placement Right 2019-09-12 18:54:13Addendum by Josh Pro MD on 09/21/2019 7:52 AMBreast, right, FNA, 1.4 cm nodule, 10 o'clock position, 11 cm from nipple:Atypical papillary lesion (see comment)COMMENT: The sample is highly anson lular and comprised of discohesive cells with mild to moderate nuclear atypia. Myoepithelial cells are not identified. The findings favor low grade papillary carcinoma. Breast, right, FNA, 0.6 cm nodule, 12 o'clock position, 8 cm from the nipple:Papillary lesionCOMMENT: The direct smears and cytospin preparation demonstrate abundant columnar epithelium without significant atypia in a proteinaceous background. The findings favor an intraductal papilloma. These results are concordant with imaging and were communicated through institutional email to Sasha Mcneill at time of addendum. 1. Known malignancy in the right breast at 10 o'clock with three suspicious masses between this finding and the nipple. The suspicious mass closest to the nipple was targeted by ultrasound- guided biopsy and preliminary cytology assessment demonstrated evidence of malignancy. 2. Technically successful ultrasound-guidedbiopsy of a right breast mass at 12 o'clock. The preliminary cytopathology assessment is benign. The final result will be added as an addendum. 3. No suspicious right-sided lymphadenopathy is identified. ACR BI-RADS Category: 6. Known malignancy.Final biopsy results will be reported in an addendum. Interface, Radiology Results In - 09/12/2019 12:56 PM CSTFULL RESULT:Examination: US BREAST COMPLETE RIGHT, US GUIDED BREAST CLIP PLACEMENT RIGHT, US BREAST FINE NEEDLE ASPIRATION - RIGHT, US CHEST 09/12/2019 11:57 AMClinical History: 69-year-old woman with breast cancer.Indication: Breast cancer.Comparison: Breast ultrasound performed at outside facility 07/25/2019 and 08/03/2019. Mammogram 09/12/2019. Technique: Real-time sonographic imaging of the right breast (including all 4 quadrants and retroareolar region) was performed. Ultrasound imaging was performed of the right axilla (levels I, II, and III) and right chest/mediastinum (to evaluate the internal mammary lymph nodes). Images were obtained in multiple scanning planes.Findings: Right Breast:The known malignancy with marker clip at 10 o'clock, 17 cm from the nipple measures 2.3 x 1.7 x 1.2 cm.Three suspicious masses are located between the known malignancy and the nipple. The mass closest to the nipple at 10 o'clock, 11 cm from the nipple measuring 1.4 x 1 x 0.8 cm was selected for ultrasound-guided biopsy. This finding is approximately 4 cm from the index mass.The second suspicious mass at 10 o'clock measures 1.3 x 1 x 0.7 cm (located 1.6 cm from the index). The third suspicious mass at 10 o'clock measures 0.5 x 0.4 x 0.4 cm (located 1.3 cm from the index).A hypoechoic mass at 12 o'clock, 8 cm from the nipple measures 0.6 x 0.5 x 0.5 cm. This finding was selected for ultrasound-guided biopsy.Right Diane Basins:No suspicious axillary (level I, II & III) or internal mammary lymphadenopathy is noted.Procedure(s): Ultrasound-Guided Breast FNA Biopsy - Right at 12 o'clockUltrasound-Guided Breast FNA Biopsy and Breast Clip Placement - Right at 10 o'clockPrimary Proceduralist: Josh Pro MDAssistant: NoneConsent: The procedures, risks, indications, and alternatives were explained. All questions were answered and informed consent was obtained.Procedure(s) in Detail: A time- out was performed prior to the start of the procedures and the correct patient, procedures, presence of consent, sites, and side(s) were confirmed withall members of the team. The skin was prepped in the usual sterile fashion with chlorhexidine. Lidocaine 1 percent was administered for local anesthesia. Site #1: Under direct sonographic guidance, the right breast mass at 12 o'clock was sampled using a 21 gauge needle in a single pass. Cytopathologypreliminary assessment demonstrated adequate sampling without evidence of malignancy.Site #2: Under direct sonographic guidance, the the right breast mass of interest at 10 o'clock, 11 cm from the nipple was sampled using a 21 gauge needle in a single pass. Cytopathology preliminary assessment demonstrated evidence of malignancy. A [place] [facility] clip was then placed under sonographic guidance. Post-procedure Mammography: Post-procedure mammography was performed and shows the marker clip in expected position.Estimated Blood Loss: Minimal.Specimen(s) Removed: Yes.Immediate Complications: None.Pre-procedure diagnosis: Breast Cancer.Post-procedure diagnosis: Breast Cancer.Disposition: The patient tolerate d the procedure well and was discharged to the next clinical appointment in good condition.IMPRESSION:1. Known malignancy in the right breast at 10 o'clock with three suspicious masses between this finding and the nipple. The suspicious mass closest to the nipple was targeted by ultrasound-guided biopsy and preliminary cytology assessment demonstrated evidence of malignancy.2. Technically successful ultrasound-guided biopsy of a right breast mass at 12 o'clock. The preliminary cytopathology assessment is benign. The final result will be added as an addendum.3. No suspicious right-sided lymphadenopathy is identified.ACR BI-RADS Category: 6. Known malignancy.Final biopsy results will be reported in an addendum.MD McclendonUS Breast FNA [id number] 18:54:13 Addendum by Josh Pro MD on 09/21/2019 7:52 AMBreast, right, FNA, 1.4 cm nodule, 10 o'clock position, 11 cm from nipple:Atypical papillary lesion (see comment)COMMENT: The sample is highly cellular and comprised of discohesive cells with mild to moderate nuclear atypia. Myoepithelial cells are not identified. The findings favor low grade papillary carcinoma. Breast, right, FNA, 0.6 cm nodule, 12 o'clock position, 8 cm from the nipple:Papillary lesionCOMMENT: The direct smears and cytospin preparation demonstrate abundant columnar epithelium without significant atypia in a proteinaceous background. The findings favor an intraductal papilloma. These results are concordant with imaging and were communicated through institutional email to Sasha Mcneill at time of addendum. 1. Known malignancy in the right breast at 10 o'clock with three suspicious masses between this finding and the nipple. The suspicious mass closest to the nipple was targeted by ultrasound-guided biopsy and preliminary cytology assessment demonstrated evidence of malignancy. 2. Technically successful ultrasound-guidedbiopsy of a right breast mass at 12 o'clock. The preliminary cytopathology assessment is benign. Thefinal result will be added as an addendum. 3. No suspicious right-sided lymphadenopathy is identified. ACR BI-RADS Category: 6. Known malignancy.Final biopsy results will be reported in an addendum. Interface, Radiology Results In - 09/12/2019 12:56 PM CSTFULL RESULT:Examination: US BREAST COMPLETE RIGHT, US GUIDED BREAST CLIP PLACEMENT RIGHT, US BREAST FINE NEEDLE ASPIRATION - RIGHT, US CHEST 09/12/2019 11:57 AMClinical History: 69-year-old woman with breast cancer.Indication: Breast cancer.Comparison: Breast ultrasound performed at outside facility 07/25/2019 and 08/03/2019. Mammogram 09/12/2019. Technique: Real-time sonographic imaging of the right breast (including all 4 quadrants andretroareolar region) was performed. Ultrasound imaging was performed of the right axilla (levels I, II, and III) and right chest/mediastinum (to evaluate the internal mammary lymph nodes). Images were obtained in multiple scanning planes.Findings: Right Breast:The known malignancy with marker clip at 10 o'clock, 17 cm from the nipple measures 2.3 x 1.7 x 1.2 cm.Three suspicious masses are located between the known malignancy and the nipple. The mass closest to the nipple at 10 o'clock, 11 cm from the nipple measuring 1.4 x 1 x 0.8 cm was selected for ultrasound-guided biopsy. This finding is approximately 4 cm from the index mass.The second suspicious mass at 10 o'clock measures 1.3 x 1 x 0.7 cm (located 1.6 cm from the index). The third suspicious mass at 10 o'clock measures 0.5 x 0.4 x 0.4 cm (located 1.3 cm from the index).A hypoechoic mass at 12 o'clock, 8 cm from the nipple measures 0.6 x 0.5 x 0.5 cm. This finding was selected for ultrasound-guided biopsy.Right Diane Basins:No suspicious axillary (level I, II & III) or internal mammary lymphadenopathy is noted.Procedure(s): Ultrasound -Guided Breast FNA Biopsy - Right at 12 o'clockUltrasound-Guided Breast FNA Biopsy and Breast Clip Placement - Right at 10 o'clockPrimary Proceduralist: Josh Pro MDAssistant: NoneConsent: The procedures, risks, indications, and alternatives were explained. All questions were answered and informed consent was obtained.Procedure(s) in Detail: A time-out was performed prior to the start of the procedures and the correct patient, procedures, presence of consent, sites, and side(s) were confirmed withall members of the team. The skin was prepped in the usual sterile fashion with chlorhexidine. Lidocaine 1 percent was administered for local anesthesia. Site #1: Under direct sonographic guidance, the right breast mass at 12 o'clock was sampled using a 21 gauge needle in a single pass. Cytopathologypreliminary assessment demonstrated adequate sampling without evidence of malignancy.Site #2: Under direct sonographic guidance, the the right breast mass of interest at 10 o'clock, 11 cm from the nipple was sampled using a 21 gauge needle in a single pass. Cytopathology preliminary assessment demonstrated evidence of malignancy. A [place] [facility] clip was then placed under sonographic guidance. Post-procedure Mammography: Post-procedure mammography was performed and shows the marker clip in expected position.Estimated Blood Loss: Minimal.Specimen(s) Removed: Yes.Immediate Complications: None.Pre-procedure diagnosis: Breast Cancer.Post- procedure diagnosis: Breast Cancer.Disposition: The patient tolerated the procedure well and was discharged to the next clinical appointment in good condition.IMPRESSION:1. Known malignancy in the right breast at 10 o'clock with three suspicious masses between this finding and the nipple. The suspicious mass closest to the nipple was targeted by ultrasound-guided biopsy and preliminary cytology assessment demonstrated evidence of malignancy.2. Technically successful ultrasound-guided biopsy of a right breast mass at 12 o'clock. The preliminary cytopathology assessment is benign. The final result will be added as an addendum.3. No suspicious right-sided lymphadenopathy is identified.ACR BI-RADS Category: 6. Known malignancy.Final biopsy results will be reported in an addendum.MD McclendonMammography Digital Diagnostic Bilateral 2019-09-12 15:15:54 Test Item Value Reference Range Interpretation Comments IMP (test code = IMP) 1: Mass in the right breast upper outer quadrant at 10 o'clock located 14centimeters from the nipple is known biopsy-proven malignancy. Ultrasound isrecommended for staging. 2: Masses in the right breast require additional imaging evaluation. Anultrasound exam is recommended. BI-RADS Category 0:Incomplete: Needs Additional Imaging Evaluation PXN (test code = PXN) Interface, Radiology Results In 09/12/2019 9:15 AM CSTCLINICAL INDICATION:Patient is a 69 year old female and is seen for breast cancer MAMMO DIGITAL DIAGNOSTIC BILATERAL COMPARISON:The present examination has been compared to prior imaging studies performed atan outside location on 11/14/2018, 12/13/2018, 07/25/2019 and 08/03/2019. FINDINGS:There are scattered areas of fibroglandular density. 1: There is an irregular mass measuring 2.4 x 2.2 x 2.1 centimeters withassociated post biopsy clip in the right breast upper outer quadrant at 10o'clock located 14 centimeters from the nipple. Biopsy performed at outside[facility]ritical [facility] demonstrated IDC. A focal asymmetry is associated with the mass alongthe anteroinferior aspect measuring approximately 4.5 x 3.5 x 2.5 which may besecondary to asymmetric breast tissue. 2: There are multiple similar oval masses with circumscribed margins in theright breast. These findings likely represent cysts observed by outsideultrasound exam. In the left breast, no dominant mass, distortion, or suspicious calcificationsare identified. IMPRESSION:1: Mass in the right breast upper outer quadrant at 10 o'clock located 14centimeters from the nipple is known biopsy-proven malignancy. Ultrasound isrecommended for staging. 2: Masses in the right breast require additional imaging evaluation. Anultrasound exam is recommended. BI-RADS Category 0:Incomplete: Needs Additional Imaging Evaluation Lab Interpretation Abnormal (test code = 69911-0) MD Hairston US Breast [id number] 15:28:41For comparison only. No interpretation requested.MD Hairston US [id number] 15:27:55For comparison only. No interpretation requested.MD Hairston MRI [id number] 15:27:40For comparison only. No interpretation requested.MD Mcclendon
--- NOTE | 2020-03-29 15:41 | EDPHYS ---
Physician Documentation [facility] Name: Kirsty Khan Age: 69 yrs Sex: Female : 1950 Arrival Date: 03/29/2020 Time: 13:53 Bed 4 Private MD: Filippo Grubbs HPI: 03/29 15:09 This 69 yrs old Female presents to ER via Ambulatory with complaints of luis Doctor Sent her-Blood Clot in Leg. 15:09 The patient presents with decreased range of motion, pain, swelling, tenderness. The luis complaints affect the medial aspect of left calf. Context: The problem was sustained at an unknown site. Onset: The symptoms/episode began/occurred 3 day(s) ago. Modifying factors: The symptoms are alleviated by elevating leg, the symptoms are aggravated by movement. Associated signs and symptoms: The patient has no apparent associated signs or symptoms. Treatment prior to arrival includes: no previous treatment. The patient has not experienced similar symptoms in the past. Historical: - Allergies: 14:07 Aspirin; ll1 - PMHx: 14:07 Diabetes - NIDDM; ll1 - PSHx: 14:07 Hysterectomy; ll1 14:08 breast surgery, neck surgery; ll1 - Immunization history:: Flu vaccine is not up to date. - Social history:: Smoking status: Patient denies any tobacco usage or history of. Patient/guardian denies using alcohol, street drugs, tobacco products. - Family history:: not pertinent. ROS: 15:09 Constitutional: Negative for fever, chills, and weight loss, Eyes: Negative for injury, luis pain, redness, and discharge, ENT: Negative for injury, pain, and discharge, Neck: Negative for injury, pain, and swelling, Cardiovascular: Negative for chest pain, palpitations, and edema, Respiratory: Negative for shortness of breath, cough, wheezing, and pleuritic chest pain, Abdomen/GI: Negative for abdominal pain, nausea, vomiting, diarrhea, and constipation, Back: Negative for injury and pain, : Negative for injury, bleeding, discharge, and swelling, Skin: Negative for injury, rash, and discoloration, Neuro: Negative for headache, weakness, numbness, tingling, and seizure, Psych: Negative for depression, anxiety, suicide ideation, homicidal ideation, and hallucinations, Allergy/Immunology: Negative for hives, rash, and allergies, Endocrine: Negative for neck swelling, polydipsia, polyuria, polyphagia, and marked weight changes, Hematologic/Lymphatic: Negative for swollen nodes, abnormal bleeding, and unusual bruising. 15:09 MS/extremity: Positive for pain, swelling, tenderness, warmth, of the left leg. 15:28 Cardiovascular: Negative for chest pain. luis 15:28 Respiratory: Negative for cough, dyspnea on exertion, shortness of breath. Exam: 15:09 Constitutional: This is a well developed, well nourished patient who is awake, alert, luis and in no acute distress. Head/Face: Normocephalic, atraumatic. Eyes: Pupils equal round and reactive to light, extra-ocular motions intact. Lids and lashes normal. Conjunctiva and sclera are non-icteric and not injected. Cornea within normal limits. Periorbital areas with no swelling, redness, or edema. ENT: Nares patent. No nasal discharge, no septal abnormalities noted. Tympanic membranes are normal and external auditory canals are clear. Oropharynx with no redness, swelling, or masses, exudates, or evidence of obstruction, uvula midline. Mucous membranes moist. Neck: Trachea midline, no thyromegaly or masses palpated, and no cervical lymphadenopathy. Supple, full range of motion without nuchal rigidity, or vertebral point tenderness. No Meningismus. Chest/axilla: Normal chest wall appearance and motion. Nontender with no deformity. No lesions are appreciated. Cardiovascular: Regular rate and rhythm with a normal S1 and S2. No gallops, murmurs, or rubs. Normal PMI, no JVD. No pulse deficits. Respiratory: Lungs have equal breath sounds bilaterally, clear to auscultation and percussion. No rales, rhonchi or wheezes noted. No increased work of breathing, no retractions or nasal flaring. Abdomen/GI: Soft, non-tender, with normal bowel sounds. No distension or tympany. No guarding or rebound. No evidence of tenderness throughout. Back: No spinal tenderness. No costovertebral tenderness. Full range of motion. Female : Normal external genitalia. Skin: Warm, dry with normal turgor. Normal color with no rashes, no lesions, and no evidence of cellulitis. Neuro: Awake and alert, GCS 15, oriented to person, place, time, and situation. Cranial nerves II-XII grossly intact. Motor strength 5/5 in all extremities. Sensory grossly intact. Cerebellar exam normal. Normal gait. Psych: Awake, alert, with orientation to person, place and time. Behavior, mood, and affect are within normal limits. 15:09 Musculoskeletal/extremity: ROM: full active range of motion, full passive range of motion, Circulation is intact in all extremities. Sensation intact. Compartment Syndrome exam of affected extremity: is normal. DVT Exam: negative Homans' sign noted on exam, no appreciated bluish discoloration, pain, swelling, tenderness, erythema, increased warmth. 15:09 Skin: cellulitis, that is mild, that is moderate, induration, that is mild is noted, that is moderate is noted, injury, is not appreciated. Vital Signs: 14:03 BP 147 / 76; Pulse 88; Resp 17; Temp 98.3; Pulse Ox 99% ; Weight 83.01 kg; Height 5 ft. ll1 7 in. (170.18 cm); Pain 5/10; 14:03 Body Mass Index 28.66 (83.01 kg, 170.18 cm) ll1 MDM: 15:06 Patient medically screened. luis 15:14 Differential diagnosis: contusion. Data reviewed: vital signs, nurses notes, radiologic luis studies, ultrasound. Data interpreted: classroom monitor: not applicable for this patient encounter. rate is 88 beats/min, rhythm is regular. Test interpretation: by ED physician or midlevel provider: venous doppler. 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 15:30 ED course: follow up dr sylvester/ernesto, xarelto 15mg bid x 3weeks, elevate, keflex 500 luis mg po qid, return if worse. Administered Medications: 15:50 Drug: KeFLEX 500 mg Route: PO; iw 15:59 Follow up: Response: Medication administered at discharge. hb 15:55 Drug: Xarelto 15 mg Route: PO; hb 15:59 Follow up: Response: Medication administered at discharge. hb Disposition: 03/29/20 15:41 Discharged to Home. Impression: Embolism and thrombosis of superficial veins of left lower extremities - phlebitis, Type 2 diabetes mellitus. - Condition is Stable. - Discharge Instructions: Type 2 Diabetes Mellitus, Diagnosis, Adult, Venous Thromboembolism, Type 2 Diabetes Mellitus, Diagnosis, Adult, [id number], Venous Thromboembolism Prevention. - Prescriptions for Keflex 500 mg Oral Capsule - take 1 capsule by ORAL route every 6 hours for 10 days; 40 capsule. Xarelto 15 mg Oral Tablet - take 1 tablet by ORAL route 2 times per day; 42 tablet. - Medication Reconciliation Form, Thank You Letter, Antibiotic Education, Prescription Opioid Use form. - Follow up: Private Physician; When: 2 - 3 days; Reason: Recheck today's complaints, Continuance of care, Re-evaluation by your physician. Follow up: Ricci Sylvester MD; When: 2 - 3 days; Reason: Recheck today's complaints, Re-evaluation by your physician. - Problem is new. - Symptoms have improved. Signatures: Filippo Mcclendon MD MD cha Williams, Irene, RN RN Adelaide Ballesteros RN RN Fan Nobles RN RN ll1 Corrections: (The following items were deleted from the chart) 15:41 15:41 03/29/2020 15:41 Discharged to Home. Impression: Embolism and thrombosis of luis superficial veins of left lower extremities - phlebitis. Condition is Stable. Forms are Medication Reconciliation Form, Thank You Letter, Antibiotic Education, Prescription Opioid Use. Follow up: Private Physician; When: 2 - 3 days; Reason: Recheck today's complaints, Continuance of care, Re-evaluation by your physician. Follow up: Ricci Sylvester; When: 2 - 3 days; Reason: Recheck today's complaints, Re-evaluation by your physician. Problem is new. Symptoms have improved. luis 16:00 15:41 03/29/2020 15:41 Discharged to Home. Impression: Embolism and thrombosis of hb superficial veins of left lower extremities - phlebitis; Type 2 diabetes mellitus. Condition is Stable. Forms are Medication Reconciliation Form, Thank You Letter, Antibiotic Education, Prescription Opioid Use. Follow up: Private Physician; When: 2 - 3 days; Reason: Recheck today's complaints, Continuance of care, Re-evaluation by your physician. Follow up: Ricci Sylvester; When: 2 - 3 days; Reason: Recheck today's complaints, Re-evaluation by your physician. Problem is new. Symptoms have improved. luis
--- NOTE | 2020-03-29 15:41 | ER ---
Nurse's Notes [facility] Name: Kirsty Khan Age: 69 yrs Sex: Female : 1950 Arrival Date: 03/29/2020 Time: 13:53 Bed 4 Private MD: Diagnosis: Embolism and thrombosis of superficial veins of left lower extremities-phlebitis;Type 2 diabetes mellitus Presentation: 03/29 14:03 Chief complaint: Patient states: Left leg DVT, sent by Dr. Morales for eval. LLE for 4 ll1 days. Coronavirus screen: Client denies travel out of the [place] in the last 14 days. At this time, the client does not indicate any symptoms associated with coronavirus-19. Ebola Screen: Patient denies travel to an Ebola-affected area in the 21 days before illness onset. Initial Sepsis Screen: Does the patient meet any 2 criteria? No. Patient's initial sepsis screen is negative. Risk Assessment: Do you want to hurt yourself or someone else? Patient reports no desire to harm self or others. Onset of symptoms was March 26, 2022. 14:03 Method Of Arrival: Ambulatory ll1 14:03 Acuity: BIJAL 3 ll1 14:05 Initial Sepsis Screen: Does the patient have a suspected source of infection? No. iw Patient's initial sepsis screen is negative. Triage Assessment: 15:00 General: Appears in no apparent distress. Behavior is calm. iw Historical: - Allergies: 14:07 Aspirin; ll1 - PMHx: 14:07 Diabetes - NIDDM; ll1 - PSHx: 14:07 Hysterectomy; ll1 14:08 breast surgery, neck surgery; ll1 - Immunization history:: Flu vaccine is not up to date. - Social history:: Smoking status: Patient denies any tobacco usage or history of. Patient/guardian denies using alcohol, street drugs, tobacco products. - Family history:: not pertinent. Screenin:45 Abuse screen: Denies threats or abuse. Denies injuries from another. Nutritional hb screening: No deficits noted. Tuberculosis screening: No symptoms or risk factors identified. Fall Risk None identified. Assessment: 15:00 General: Appears in no apparent distress. comfortable, Behavior is calm, cooperative. iw Pain: Complains of pain in left leg and medial aspect of left calf. Neuro: Level of Consciousness is awake, alert, obeys commands, Oriented to person, place, time, situation, Moves all extremities. Full function. Cardiovascular: Patient's skin is warm and dry. Respiratory: Respiratory effort is even, unlabored, Respiratory pattern is regular, symmetrical. Derm: Skin is intact, is healthy with good turgor. Derm: redness and swelling noted to left inner calf area. Musculoskeletal: Range of motion: intact in all extremities. Vital Signs: 14:03 BP 147 / 76; Pulse 88; Resp 17; Temp 98.3; Pulse Ox 99% ; Weight 83.01 kg; Height 5 ft. ll1 7 in. (170.18 cm); Pain 5/10; 14:03 Body Mass Index 28.66 (83.01 kg, 170.18 cm) ll1 ED Course: 13:53 Patient arrived in ED. bp1 14:06 Triage completed. ll1 14:08 Arm band placed on Patient placed in an exam room, on a stretcher. ll1 14:45 Patient has correct armband on for positive identification. Bed in low position. Call hb light in reach. Side rails up X 1. 15:06 Filippo Mcclendon MD is Attending Physician. luis 15:32 Marina Campbell, RN is Primary Nurse. iw 15:38 Ricci Sylvester MD is Referral Physician. luis 15:59 No provider procedures requiring assistance completed. Patient did not have IV access hb during this emergency room visit. Administered Medications: 15:50 Drug: KeFLEX 500 mg Route: PO; iw 15:59 Follow up: Response: Medication administered at discharge. hb 15:55 Drug: Xarelto 15 mg Route: PO; hb 15:59 Follow up: Response: Medication administered at discharge. hb Outcome: 15:41 Discharge ordered by . luis 15:59 Discharged to home ambulatory. hb 15:59 Condition: stable 15:59 Discharge instructions given to patient, Instructed on discharge instructions, follow up and referral plans. medication usage, Demonstrated understanding of instructions, follow-up care, medications, Prescriptions given X 2. 16:00 Patient left the ED. hb Signatures: Filippo Mcclendon MD MD cha Williams, Irene, RN ROMAN iw Adelaide Ballesteros RN RN Fan Nobles RN RN ll1 Mary Schilling bp1
[2020-03-29] MEDS ORDERED: CEPHALEXIN 250 MG CAP ONE (15:44)
[2020-03-29] MEDS ORDERED: RIVAROXABAN 15 MG TABLET PO ONE (16:00)
[2020-03-29 16:05] VITALS: BP 147/76; TEMP 98.3; O2SAT 99
== END 2020-03-29 16:00 | disposition home or self-care (01) ==
LOC: ER 13:50
DX: I82.812 Embolism and thrombosis of superficial veins of left lower extremity (principal); E11.9 Type 2 diabetes mellitus without complications; Z88.6 Allergy status to analgesic agent
CPT/HCPCS: 36415; 85025; 85379; 93971; 99283

== ENCOUNTER 2024-01-03 09:34 | Emergency (ER) | payer OTHER ==
--- OUTSIDE RECORDS SUMMARY | 2024-01-03 09:38 | XMS REPORT | Clinical Summary ---
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 COMPARISON: MRI brain 03/27/2023. TECHNIQUE: MRI of the brain without and with IV contrast was performed. FINDINGS: Intracranial: There is no worrisome parenchymal or leptomeningeal enhancement. There is no acute hemorrhage or acute infarct. There is stable encephalomalacia in the left anterior frontal lobe. There is no mass effect or midline shift. The ventricles and extra-axial spaces are appropriate for age. There is no sellar or suprasellar abnormality. Bone: There are no suspicious calvarial or skull base lesions. The mastoid air cells are clear. Extracranial: The orbits are unremarkable. The visualized paranasal sinuses are predominantly clear. IMPRESSION: No acute intracranial abnormality. No intracranial metastasis. ACTIONABLE ITEMS/RECOMMENDATIONS*: None. Melissa Palacio APRN IMG MRI ORDERA BLES * (ABNORMAL) .CBC (10/15/2023 7:53 AM MOTION STUDY ENGINEER) Only the most recent of3 resultswithin the time period is included. White Blood Cell 12.6(H) 4.1 - 10.5 K/uL 10/15/2023 8:43 AM [facility] Red Blood Cell 4.34 3.99 - 5.46 M/uL 10/15/2023 8:43 AM [facility] Hemoglobin 12.7 12.2 - 15.3 g/dL 10/15/2023 8:43 AM [facility] Hematocrit 40.1 36.4 - 46.8 % 10/15/2023 8:43 AM [facility] Mean Cell Volume 92 82 - 99 fL 10/15/2023 8:43 AM [facility] Mean Cell Hemoglobin 29.3 26.6 - 33.2 pg 10/15/2023 8:43 AM [facility] Mean Cell Hemoglobin Concentration 31.7 31.1 - 35.2 g/dL 10/15/2023 8:43 AM [facility] RDW-SD 45.6 37.5 - 49.7 fL 10/15/2023 8:43 AM [facility] Red Cell Diameter Width 13.5 11.6 - 15.5 % 10/15/2023 8:43 AM [facility] Platelet 250 160 - 397 K/uL 10/15/2023 8:43 AM [facility] Mean Platelet Volume 10.4 9.1 - 12.6 fL 10/15/2023 8:43 AM [facility] INRBC 0.0 0.0 - 0.1 /100 WBC 10/15/2023 8:43 AM [facility] Comment: The INRBC (instrument NRBC) value reflects the enumeration of nucleated red blood cells contained in a 200uL sample of whole blood analyzed by the instrument. This value may differ from the NRBC value reported in a manual differential, which is based on a 100 cell differential. Blood Peripheral blood specimen / Unknown Venipuncture / Unknown 10/15/2023 7:53 AM MOTION STUDY ENGINEER 10/15/2023 7:54 AM [facility] Elton Kraus MD LAB BLOOD ORDERABLES [facility] [address] [place] [address] * (ABNORMAL) Differential (10/15/2023 7:53 AM [facility]) Only the most recent of2 resultswithin the time period is included. Total Cells 100 10/15/2023 8:43 AM [facility] Manual Neutrophil % 47.0 43.2 - 72.7 % 10/15/2023 8:43 AM [facility] Comment:The Neutrophil count includes Bands. Manual Lymphocyte % 43.0 16.8 - 46.2 % 10/15/2023 8:43 AM [facility] Manual Monocyte % 8.0 5.1 - 12.5 % 10/15/2023 8:43 AM [facility] Manual Eosinophil % 2.0 0.4 - 6.3 % 10/15/2023 8:43 AM [facility] Metamyelocyte % 8:43 AM [facility] Comment:The Metamyelocyte co unt includes Myelocytes. Manual Neutrophil Abs 5.92 1.95 - 7.25 K/uL 10/15/2023 8:43 AM [facility] Manual Lymphocyte Abs 5.42(H) 1.01 - 3.24 K/uL 10/15/2023 8:43 AM [facility] Manual Monocyte Abs 1.01(H) 0.24 - 0.85 K/uL 10/15/2023 8:43 AM MOTION STUDY ENGINEER [facility] Manual Eosinophil Abs 0.25 0.02 - 0.50 K/uL 10/15/2023 8:43 AM MOTION STUDY ENGINEER [facility] RBC Morphology NORMAL 10/15/2023 8:43 AM MOTION STUDY ENGINEER [facility] PLT Morph Normal Normal 10/15/2023 8:43 AM MOTION STUDY ENGINEER [facility] Blood Peripheral blood specimen / Unknown Venipuncture / Unknown 10/15/2023 7:53 AM MOTION STUDY ENGINEER 10/15/2023 7:54 AM MOTION STUDY ENGINEER Elton Kraus MD LAB BLOOD ORDERABLES [facility] [address] [place] [address] * Mammography Digital Diagnostic Bilateral with Nakul (09/30/2023 12:51 PM MOTION STUDY ENGINEER) Anatomical Region Laterality Modality Breast Bilateral Mammography 09/30/2023 1:15 PM MOTION STUDY ENGINEER Impressions 09/30/2023 1:15 PM MOTION STUDY ENGINEER There is no mammographic evidence of malignancy. Follow-up mammogram in 1 year is recommended. BI-RADS Category 2: Benign Finding(s) Narrative 09/30/2023 1:15 PM MOTION STUDY ENGINEER CLINICAL INDICATION: Patient is a 73 year old female and is seen for history of breast cancer MAMMO DIGITAL DIAGNOSTIC BILATERAL W NAKUL Digital Mammogram evaluated with Computer Aided Detection (CAD). COMPARISON: The present examination has been compared to prior imaging studies performed at an outside location on 11/14/2018, at [facility] on 11/27/2022, and at [facility] on 09/12/2019, 11/26/2020 and 12/25/2021. FINDINGS: There are scattered areas of fibroglandular density. 1: There is a post surgical scar with associated surgical clips in the right breast outer hemisphere at 9 to 10 o'clock. 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 There is no evidence for recurrent disease. 2: There are mastopexy changes in both breasts. 3: There are benign appearing calcifications in both breasts. Tomosynthesis performed in CC and MLO projections. Procedure Note Nicci Andrade MD - 09/30/2023 CLINICAL INDICATION: Patient is a 73 year old female and is seen for history of breast cancer MAMMO DIGITAL DIAGNOSTIC BILATERAL W NAKUL Digital Mammogram evaluated with Computer Aided Detection (CAD). COMPARISON: The present examination has been compared to prior imaging studiesperformed at an outside location on 11/14/2018, at [facility] on 11/27/2022, and at [facility] on 09/12/2019, 11/26/2020 and 12/25/2021. FINDINGS: There are scattered areas of fibroglandular density. 1: There is a post surgical scar with associated surgical clips in theright breast outer hemisphere at 9 to 10 o'clock. The patient is status postright segmentectomy in 2019 for IDC / DCIS. There is no evidence for recurrentdisease. 2: There are mastopexy changes in both breasts. 3: There are benign appearing calcifications in both breasts. Tomosynthesis performed in CC and MLO projections. IMPRESSION: There is no mammographic evidence of malignancy. Follow-up mammogram in 1 year is recommended. BI-RADS Category 2: Benign Finding(s) Melissa Palacio APRN IMG MAMMOGRAPH Y ORDERABLES * (ABNORMAL) Glucose, Fasting (09/30/2023 10:19 AM MOTION STUDY ENGINEER) Only the most recent of2 resultswithin the time period is included. Glucose Fasting 127(H) 70 - 99 mg/dL 09/30/2023 11:05 AM [facility] Is patient fasting? Yes 09/30/2023 11:05 AM [facility] Blood Peripheral blood specimen / Unknown Venipuncture / Unknown 09/30/2023 10:19 AM MOTION STUDY ENGINEER 09/30/2023 10:26 AM MOTION STUDY ENGINEER Narrative [facility] - 09/30/2023 11:05 AM MOTION STUDY ENGINEER Impaired fasting glucose (increased risk for diabetes or prediabetes): 100 125 mg/dL Diabetes mellitus: => 126 mg/dL Melissa Marybeth Hakeem TONGUE BINDER LAB BLOOD ORDE LINDA Performing Organization Address City/[facility]/ZIP Co de Phone Number [address] [place] [address] * CA 15-3 (09/30/2023 10:19 AM MOTION STUDY ENGINEER) Only the most recent of2 resultswithin the time period is included. CA 15-3 23.5 <=25.0 U/mL 09/30/2023 11:24 AM MOTION STUDY ENGINEER [facility] Blood Peripheral blood specimen / Unknown Venipuncture / Unknown 09/30/2023 10:19 AM MOTION STUDY ENGINEER 09/30/2023 10:26 AM MOTION STUDY ENGINEER Narrative [facility] - 09/30/2023 11:24 AM MOTION STUDY ENGINEER Results greater than 2400.0 U/mL may not be reliable due to matrix effect with extended dilution as it exceeds the inspector integrated circuits's recommended limit. Caution should be exercised when interpreting such values and done in conjunction with clinical context. This test is measured by electrochemiluminescence immunoassay on Ron Katelyn immunoassay analyzers. Results obtained in different methods are not interchangeable. Melissa Palacio APRN LAB BLOOD CHRIS MCKEON Performing Organization Address [facility] Co de Phone Number [address] [place] [address] * Vitamin D 25OH (09/30/2023 10:19 AM MOTION STUDY ENGINEER) Only the most recent of2 resultswithin the time period is included. [facility] Vitamin D 25 OH 37 30 - 100 ng/mL 09/30/2023 11:38 AM MOTION STUDY ENGINEER [facility] Blood Peripheral blood specimen / Unknown Venipuncture / Unknown 09/30/2023 10:19 AM MOTION STUDY ENGINEER 09/30/2023 10:26 AM MOTION STUDY ENGINEER Narrative [facility] - 09/30/2023 11:38 AM MOTION STUDY ENGINEER Reference Range: Deficiency: <=20 ng/mL Insufficiency: 21-29 ng/mL Sufficiency: 30-100 ng/mL Potential toxicity: >100 ng/mL Melissa Palacio APRN LAB BLOOD ORDE LINDA [facility] Unless otherwise noted, all lab tests performed by: Division of Pathology and Laboratory Medicine [address] [place] [id number] * BUN (09/30/2023 10:19 AM MOTION STUDY ENGINEER) Only the most recent of3 resultswithin the time period is included. BUN 14 6 - 23 mg/dL 09/30/2023 11:05 AM MOTION STUDY ENGINEER [facility] Blood Peripheral blood specimen / Unknown Venipuncture / Unknown 09/30/2023 10:19 AM MOTION STUDY ENGINEER 09/30/2023 10:26 AM MOTION STUDY ENGINEER Melissa Palacio APRN LAB BLOOD ORDE LINDA Performing Organization Address [facility] Co de Phone Number [facility] [address] [place] [address]. [address] [place] [address] * ALT (09/30/2023 10:19 AM MOTION STUDY ENGINEER) Only the most recent of2 resultswithin the time period is included. ALT 22 <=33 U/L 09/30/2023 11: 05 AM [facility] Blood Peripheral blood specimen / Unknown Venipuncture / Unknown 09/30/2023 10:19 AM MOTION STUDY ENGINEER 09/30/2023 10:26 AM MOTION STUDY ENGINEER Melissa Palacio APRN LAB BLOOD ORDE LINDA Performing Organization Address City/[facility] Co de Phone Number [address] [place] [address] * (ABNORMAL) Aspartate Aminotransferase (09/30/2023 10:19 AM MOTION STUDY ENGINEER) Only the most recent of2 resultswithin the time period is included. AST 35(H) <=32 U/L 09/30/2023 11: 05 AM [facility] Blood Peripheral blood specimen / Unknown Venipuncture / Unknown 09/30/2023 10:19 AM MOTION STUDY ENGINEER 09/30/2023 10:26 AM MOTION STUDY ENGINEER Melissa Palacio APRN LAB BLOOD ORDE LINDA Performing Organization Address [facility] Co de Phone Number [address] [place] [address] * Phosphorus Level (09/30/2023 10:19 AM MOTION STUDY ENGINEER) Only the most recent of3 resultswithin the time period is included. Phosphorus Level 4.3 2.5 - 4.5 mg/dL 09/30/2023 11:05 AM MOTION STUDY ENGINEER [facility] Blood Peripheral blood specimen / Unknown Venipuncture / Unknown 09/30/2023 10:19 AM MOTION STUDY ENGINEER 09/30/2023 10:26 AM MOTION STUDY ENGINEER Melissa Palacio APRN LAB BLOOD ORDE LINDA Performing Organization Address [facility] de Phone Number [address] [place] [address] * Alkaline Phosphatase (09/30/2023 10:19 AM MOTION STUDY ENGINEER) Only the most recent of3 resultswithin the time period is included. Alkaline Phosphatase 65 35 - 104 U/L 09/30/2023 11:05 AM [facility] Blood Peripheral blood specimen / Unknown Venipuncture / Unknown 09/30/2023 10:19 AM MOTION STUDY ENGINEER 09/30/2023 10:26 AM MOTION STUDY ENGINEER Melissa Palacio TONGUE BINDER LAB BLOOD ORDE LINDA Performing Organization Address [facility] Co de Phone Number [address] [place] [address] * Magnesium Level (09/30/2023 10:19 AM MOTION STUDY ENGINEER) Only the most recent of2 resultswithin the time period is included. Magnesium Level 1.6 1.6 - 2.6 mg/dL 09/30/2023 11:05 AM [facility] Blood Peripheral blood specimen / Unknown Venipuncture / Unknown 09/30/2023 10:19 AM MOTION STUDY ENGINEER 09/30/2023 10:26 AM MOTION STUDY ENGINEER Melissa Palacio APRN LAB BLOOD ORDE LINDA [facility] [address] [place] [address]. [address] [place] [address] * Creatinine (09/30/2023 10:19 AM MOTION STUDY ENGINEER) Creatinine 0.52 0.51 - 0.95 mg/dL 09/30/2023 11:05 AM [facility] eGFR 99 >=60 mL/min/1.7 3 sq. m 09/30/2023 11:05 AM [facility] Comment: The eGFRcr is calculated with the 2020 CKD-EPI creatinine equation using creatinine, patient's age, and sex for adults 18 years of age and older. Other factors, especially muscle mass, may affect accuracy and need to be considered. According to the Kidney Disease: Improving Global Outcomes (KDIGO) CKD Work Group 2012 Clinical Practice Guideline, chronic kidney disease (CKD) is defined as the abnormalities of kidney structure or function, present for more than 3 months, with implications for health. CKD should be classified by cause, GFR category, and albuminuria category. KDIGO guidelines provide the following GFR categories. Stage / Description / GFR mL/min/1.73 m2: G1* / Normal or high / >= 90 G2* / Mildly decreased / 60-89 G3a / Mildly to moderately decreased / 45-59 G3b / Moderately to severely decreased / 30-44 G4 / Severely decreased / 15-29 G5 / Kidney failure / <15 *In the absence of evidence of kidney damage, neither G1 nor G2 fulfill criteria for CKD. Blood Peripheral blood specimen / Unknown Venipuncture / Unknown 09/30/2023 10:19 AM MOTION STUDY ENGINEER 09/30/2023 10:26 AM MOTION STUDY ENGINEER Melissa Palacio APRN LAB BLOOD ORDWyatt MCKEON [facility] [address] [place] [address]. [address] [place] [address] * Calcium Level (09/30/2023 10:19 AM MOTION STUDY ENGINEER) Only the most recent of3 resultswithin the time period is included. Calcium Level Total 9.9 8.2 - 10.2 mg/dL 09/30/2023 11:05 AM [facility] Blood Peripheral blood specimen / Unknown Venipuncture / Unknown 09/30/2023 10:19 AM MOTION STUDY ENGINEER 09/30/2023 10:26 AM MOTION STUDY ENGINEER Melissa Palacio TONGUE BINDER LAB BLOOD ORDE FANGINNY Performing Organization Address [facility]/ZIP Co de Phone Number [address] [place] [address] * Bilirubin Total (09/30/2023 10:19 AM MOTION STUDY ENGINEER) Only the most recent of2 resultswithin the time period is included. Bilirubin Total 0.3 <=1.2 mg/dL 09/30/19 11:05 AM [facility] Blood Peripheral blood specimen / Unknown Venipuncture / Unknown 09/30/2023 10:19 AM MOTION STUDY ENGINEER 09/30/2023 10:26 AM [facility] Narrative [facility] - 09/30/2023 11:05 AM [facility] /Children >/= 1 month Reference Ranges: 0 - 1.0 mg/dL Adult Reference Ranges: 0 - 1.2 mg/dL Indocyanine Green (ICG) may cause falsely elevated bilirubin results. Total and direct bilirubin must not be measured from samples containing indocyanine green. False elevation of total bilirubin can be seen in patients with IgG concentrations above 28 g/L. Melissa Palacio APRN LAB BLOOD ORDE RABGINNY Performing Organization Address City/[facility]/ZIP Co de Phone Number [address] [place] [address] * Electrolyte Panel (09/30/2023 10:19 AM MOTION STUDY ENGINEER) Only the most recent of3 resultswithin the time period is included. Sodium Level 142 136 - 145 mmol/L 09/30/2023 11:05 AM [facility] Potassium Level 4.3 3.4 - 4.5 mmol/L 09/30/2023 11:05 AM [facility] Chloride 102 98 - 107 mmol/L 09/30/2023 11:05 AM [facility] CO2 26 22 - 29 mmol/L 09/30/2023 11:05 AM [facility] Anion Gap 14 4 - 14 mmol/L 09/30/2023 11:05 AM [facility] Blood Peripheral blood specimen / Unknown Venipuncture / Unknown 09/30/2023 10:19 AM [facility] 09/30/2023 10:26 AM [facility] Melissa Palacio SWAPNIL LAB BLOOD ORDE LINDA [facility] [address] [facility] [place] [address] * NM Bone Mineral Density Both Hips and Spine (04/01/2023 8:10 AM CDT) Anatomical Region Laterality Modality Spine Nuclear Medicine 04/01/2023 9:00 AM CDT Impressions 04/01/2023 9:19 AM CDT 1. Osteoporosis. 2. Significant interval decrease in bone mass in the right total hip. I personally reviewed these image(s) along with the resident's/fellow's interpretations, certify that if a procedure was performed I was physically present, and agree with the final report. Narrative 04/01/2023 9:19 AM CDT FULL RESULT: Examination: Bone Mineral Density (DXA), 04/01/2023 12:00 AM Clinical History: 72-year-old postmenopausal female treated for breast cancer. Indication: Assessment of bone mineral density. Comparison: 03/31/2022. Technique: Bone mineral density was obtained using Hologic dual-energy X-ray absorptiometry. L1 is excluded from analysis due to outlying T scores. Findings: The findings are provided in the below table(s). Bone Density: Region Exam Date BMD T- Z- g/cm2 Score Score AP Spine (L2, L3, L4) 04/01/2023 0.789 -2.6 -0.4 Femoral Neck (Left) 04/01/2023 0.601 -2.2 -0.4 Total Hip (Left) 04/01/2023 0.844 -0.8 0.7 Femoral Neck (Right) 04/01/2023 0.669 -1.6 0.2 Total Hip (Right) 04/01/2023 0.795 -1.2 0.3 For postmenopausal women and men age 50 and over, the World Health Organization criteria for BMD interpretation classify patients as: Normal (T-score at or above -1.0), Osteopenia (T-score between -1.0 and -2.5), or Osteoporosis (T-score at or below -2.5). Previous Exams: Region Exam Age BMD T-score BMD Change vs Date g/cm2 Baseline Previous AP Spine (L2-L4) 04/01/2023 72 0.789 -2.6 -5.6%* -2.8% 03/31/2022 71 0.812 -2.4 -2.9% -2.9% 03/27/2021 70 0.836 -2.2 Total Hip(Left) 04/01/2023 72 0.844 -0.8 -6.6%* -0.4% 03/31/2022 71 0.847 -0.8 -6.2%* -6.2%* 03/27/2021 70 0.904 -0.3 Femoral Neck(Left) 04/01/2023 72 0.601 -2.2 -5.2% -2.1% 03/31/2022 71 0.614 -2.1 -3.2% -3.2% 03/27/2021 70 0.634 -1.9 Total Hip(Right) 04/01/2023 72 0.795 -1.2 -6.6%* -6.1%* 03/31/2022 71 0.846 -0.8 -0.5% -0.5% 03/27/2021 70 0.851 -0.7 Femoral Neck(Right) 04/01/2023 72 0.669 -1.6 -4.8% 0.9% 03/31/2022 71 0.663 -1.7 -5.7% -5.7% 03/27/2021 70 0.703 -1.3 *Denotes significance at 95% confidence level, site specific LSC for AP Spine = 0.029 g/cm2, site specific LSC for Total Hip = 0.033 g/cm2, site specific LSC for Femoral Neck = 0.045 g/cm2, LSC for 1/3 Forearm = 0.023 g/cm2 Procedure Note Ashley Gonzalez MD - 04/01/2023 FULL RESULT: Examination: Bone Mineral Density (DXA), 04/01/2023 12:00 AM Clinical History: 72-year-old postmenopausal female treated for breastcancer. Indication: Assessment of bone mineral density. Comparison: 03/31/2022. Technique: Bone mineral density was obtained using Hologic [id number] absorptiometry. L1 is excluded from analysis due to outlying Tscores. Findings: The findings are provided in the below table(s). Bone Density: Region Exam Date BMD T- Z- g/cm2 Score Score AP Spine (L2, L3, L4) 04/01/2023 0.789 -2.6 -0.4 Femoral Neck (Left) 04/01/2023 0.601 -2.2 -0.4 Total Hip (Left) 04/01/2023 0.844 -0.8 0.7 Femoral Neck (Right) 04/01/2023 0.669 -1.6 0.2 Total Hip (Right) 04/01/2023 0.795 -1.2 0.3 For postmenopausal women and men age 50 and over, the World Health Organization criteria for BMD interpretation classify patients as: Normal (T-score at or above -1.0), Osteopenia (T-score between -1.0 and -2.5), or Osteoporosis (T-score at or below -2.5). Previous Exams: Region Exam Age BMD T-score BMD Change vs Date g/cm2 Baseline Previous AP Spine (L2-L4) 04/01/2023 72 0.789 -2.6 -5.6%* -2.8% 03/31/2022 71 0.812 -2.4 -2.9% -2.9% 03/27/2021 70 0.836 -2.2 Total Hip(Left) 04/01/2023 72 0.844 -0.8 -6.6%* -0.4% 03/31/2022 71 0.847 -0.8 -6.2%* -6.2%* 03/27/2021 70 0.904 -0.3 Femoral Neck(Left) 04/01/2023 72 0.601 -2.2 -5.2% -2.1% 03/31/2022 71 0.614 -2.1 -3.2% -3.2% 03/27/2021 70 0.634 -1.9 Total Hip(Right) 04/01/2023 72 0.795 -1.2 -6.6%* -6.1%* 03/31/2022 71 0.846 -0.8 -0.5% -0.5% 03/27/2021 70 0.851 -0.7 Femoral Neck(Right) 04/01/2023 72 0.669 -1.6 -4.8% 0.9% 03/31/2022 71 0.663 -1.7 -5.7% -5.7% 03/27/2021 70 0.703 -1.3 *Denotes significance at 95% confidence level, site specific LSC for APSpine = 0.029 g/cm2, site specific LSC for Total Hip = 0.033 g/cm2, sitespecific LSC for Femoral Neck = 0.045 g/cm2, LSC for 1/3 Forearm = 0.023 g/cm2 IMPRESSION: 1. Osteoporosis. 2. Significant interval decrease in bone mass in the right total hip. I personally reviewed these image(s) along with the resident's/fellow'sinterpretations, certify that if a procedure was performed I wasphysically present, and agree with the final report. Ignacio Mendoza MD IMG DXA ORDERABLES * .Serum Creatinine (04/01/2023 7:28 AM CDT) Only the most recent of2 resultswithin the time period is included. Pathologist [facility] [place] Creatinine 0.55 0.51 - 0.95 mg/dL [facility] Comment:Testing Performed at [facility] Compliance Aide [facility], [address] [place] [address], [address], [place] [address] Blood 04/01/2023 7:28 AM CDT 04/01/2023 7:39 AM CDT Ignacio Mendoza MD LAB BLOOD ORDERABLES [address] [place] [address] * PTH Intact (04/01/2023 7:28 AM CDT) Pathologist [facility] [place] PTH Intact 27.3 15.0 - 65.0 pg/mL [facility] Comment:Testing Performed at [facility] Lab Compliance Aide [facility], [address] [place] [address], [address], [place] [address] Blood 04/01/2023 7:28 AM CDT 04/01/2023 7:38 AM CDT Ignacio Mendoza MD LAB BLOOD ORDERABLES Performing Organization Address [facility] Co de Phone Number [address] [place] [address] * Glomerular Filtration Rate (04/01/2023 7:28 AM CDT) Only the most recent of2 resultswithin the time period is included. eGFR 99 >=60 mL/min/1.7 [address] [facility] Comment: The eGFRcr is calculated with the 2020 CKD-EPI creatinine equation using creatinine, patient's age, and sex for adults 18 years of age and older. Other factors, especially muscle mass, may affect accuracy and need to be considered. According to the Kidney Disease: Improving Global Outcomes (KDIGO) CKD Work Group 2012 Clinical Practice Guideline, chronic kidney disease (CKD) is defined as the abnormalities of kidney structure or function, present for more than 3 months, with implications for health. CKD should be classified by cause, GFR category, and albuminuria category. KDIGO guidelines provide the following GFR categories Stage Description GFR mL/min/1.73 m2 G1* Normal or high >= 90 G2* Mildly decreased 60-89 G3a Mildly to moderately decreased 45-59 G3b Moderately to severely decreased 30-44 G4 Severely decreased 15-29 G5 Kidney failure <15 *In the absence of evidence of kidney damage, neither G1 nor G2 fulfill criteria for CKD. Testing Performed at [facility] Lab Compliance Aide [facility], [address] [place] [address], [address], [place] [address] Blood 04/01/2023 7:28 AM CDT 04/01/2023 7:39 AM CDT Ignacio Mendoza MD LAB BLOOD ORDERABLES [address] [place] [address] * CTX Beta Crosslaps (04/01/2023 7:28 AM CDT) CTX 239 152 - 858 pg/mL [facility] Blood 04/01/2023 7:28 AM CDT 04/01/2023 8:02 AM CDT Ignacio Mendoza MD LAB BLOOD ORDERABLES [facility] Unless otherwise noted, all lab tests performed by: Division of Pathology and Laboratory Medicine [address] [place] [id number] * TSH (04/01/2023 7:28 AM CDT) Pathologist [facility] [place] TSH 3.96 0.27 - 4.20 mcunit/mL [facility] Comment: Note: New Methodology and Reference Range change effective 12/16/2017 at 1400 Testing Performed at [facility] Compliance [facility], [address] [place] [address], [address], [place] [address] Blood 04/01/2023 7:28 AM CDT 04/01/2023 7:39 AM CDT Ignacio Mendoza MD LAB BLOOD ORDERABLES Performing Organization Address [facility] Co de Phone Number [address] [place] [address] * Free T4 (04/01/2023 7:28 AM CDT) Pathologist [facility] [place] T4 Free 1.52 0.93 - 1.70 ng/dL [facility] Comment:Testing Performed at [facility] Compliance [facility]ide [facility], [address] [place] [address], [address], [place] [address] Blood 04/01/2023 7:28 AM CDT 04/01/2023 7:39 AM CDT Ignacio Mendoza MD LAB BLOOD ORDERABLES Performing Organization Address City/[facility]/ZIP Co de Phone Number [facility] [address] [place] [address]. [address] [place] [address] * (ABNORMAL) Glucose Level (04/01/2023 7:28 AM CDT) Glucose Level 118(H) 70 - 99 mg/dL [facility] Comment: Effective 03/25/16, the glucose reference intervals have been updated based on [place] [employer] guidelines (Standards of Medical Care in Diabetes 2016. Diabetes Care 2016; 39: S13-S22). Fasting blood glucose: Normal: 70-99 mg/dL Impaired fasting glucose (increased risk for diabetes or pre-diabetes): 100- 125 mg/dL Diabetes mellitus: >/=126 mg/dL Random blood glucose: Normal: 70-199 mg/dL Note: Random glucose >100 mg/dL is associated with increased risk for diabetes Testing Performed at [facility], [address] [place] [address], [address], [place] [address] Blood 04/01/2023 7:28 AM CDT 04/01/2023 7:39 AM CDT Ignacio Mendoza MD LAB BLOOD ORDERABLES Performing Organization Address City/[facility]/ZIP Co de Phone Number [address] [place] [address] * Albumin Level (04/01/2023 7:28 AM CDT) Albumin Lvl 4.7 3.5 - 5.2 gm/dL [facility] Comment:Testing Performed at [facility] Compliance Aide [facility], [address] [place] [address], [address], [place] [address] Blood 04/01/2023 7:28 AM CDT 04/01/2023 7:39 AM CDT Ignacio Mendoza MD LAB BLOOD ORDERABLES Performing Organization Address City/[facility]/ZIP Co de Phone Number [address] [place] [address] * MRI Thoracic Spine with and without Contrast (03/27/2023 11:00 AM CDT) Anatomical Region Laterality Modality T-spine, Spine Magnetic Resonan ce 03/29/2023 9:05 AM CDT Impressions 03/29/2023 10:02 AM CDT No evidence of osseous metastasis within the cervical or thoracic spine.. No spinal cord compression. Degenerative changes within the cervical and thoracic spine. ACTIONABLE ITEMS/RECOMMENDATIONS: None. Narrative 03/29/2023 10:02 AM CDT FULL RESULT: Examination: MRI CERVICAL SPINE W WO CONTRAST, MRI THORACIC SPINE W WO CONTRAST on 03/27/2023 11:00 AM. CLINICAL HISTORY: Breast cancer. INDICATION: Pain. COMPARISON: MRI of the spine dated 11/27/2022. TECHNIQUE: MRI of the cervical spine without and with IV contrast was performed. FINDINGS: Cervical spine: Vertebral body heights are maintained. There are no acute fracture compression deformities. There are no aggressive osseous lesions. Multilevel intervertebral degenerative disc changes are observed, greatest at , C5-6 and C6-7, demonstrating intervertebral disc desiccation, loss of height and central posterior disc bulging without cord compression, secondary myelomalacia or syrinx. There is no spinal cord compression. The spinal cord maintains normal signal. Thoracic spine: There are no aggressive osseous lesions. Osseous hemangiomas are noted. Multilevel Schmorl's node deformities are seen. The spinal cord maintains normal signal. Procedure Note Abby Miramontes MD - 03/29/2023 FULL RESULT: Examination: MRI CERVICAL SPINE W WO CONTRAST, MRI THORACIC SPINE W WOCONTRAST on 03/27/2023 11:00 AM. CLINICAL HISTORY: Breast cancer. INDICATION: Pain. COMPARISON: MRI of the spine dated 11/27/2022. TECHNIQUE: MRI of the cervical spine without and with IV contrast wasperformed. FINDINGS: Cervical spine: Vertebral body heights are maintained. There are no acute fracture compression deformities. There are no aggressive osseous lesions. Multilevel intervertebral degenerative disc changes are observed,greatest at , C5-6 and C6-7, demonstrating intervertebral discdesiccation, loss of height and central posterior disc bulging withoutcord compression, secondary myelomalacia or syrinx. There is no spinal cord compression. The spinal cord maintains normal signal. Thoracic spine: There are no aggressive osseous lesions. Osseous hemangiomas are noted. Multilevel Schmorl's node deformities are seen. The spinal cord maintains normal signal. IMPRESSION: No evidence of osseous metastasis within the cervical or thoracicspine.. No spinal cord compression. Degenerative changes within the cervical and thoracic spine. ACTIONABLE ITEMS/RECOMMENDATIONS: None. Melissa Palacio TONGUE BINDER IMG MRI ORDERA BLES * MRI CERVICAL SPINE W WO CONTRAST (03/27/2023 11:00 AM CDT) Anatomical Region Laterality Modality C-spine, Spine Magnetic Resonan ce 03/29/2023 9:05 AM CDT Impressions 03/29/2023 10:02 AM CDT No evidence of osseous metastasis within the cervical or thoracic spine.. No spinal cord compression. Degenerative changes within the cervical and thoracic spine. ACTIONABLE ITEMS/RECOMMENDATIONS: None. Narrative 03/29/2023 10:02 AM CDT FULL RESULT: Examination: MRI CERVICAL SPINE W WO CONTRAST, MRI THORACIC SPINE W WO CONTRAST on 03/27/2023 11:00 AM. CLINICAL HISTORY: Breast cancer. INDICATION: Pain. COMPARISON: MRI of the spine dated 11/27/2022. TECHNIQUE: MRI of the cervical spine without and with IV contrast was performed. FINDINGS: Cervical spine: Vertebral body heights are maintained. There are no acute fracture compression deformities. There are no aggressive osseous lesions. Multilevel intervertebral degenerative disc changes are observed, greatest at , C5-6 and C6-7, demonstrating intervertebral disc desiccation, loss of height and central posterior disc bulging without cord compression, secondary myelomalacia or syrinx. There is no spinal cord compression. The spinal cord maintains normal signal. Thoracic spine: There are no aggressive osseous lesions. Osseous hemangiomas are noted. Multilevel Schmorl's node deformities are seen. The spinal cord maintains normal signal. Procedure Note Abby Miramontes MD - 03/29/2023 FULL RESULT: Examination: MRI CERVICAL SPINE W WO CONTRAST, MRI THORACIC SPINE W WOCONTRAST on 03/27/2023 11:00 AM. CLINICAL HISTORY: Breast cancer. INDICATION: Pain. COMPARISON: MRI of the spine dated 11/27/2022. TECHNIQUE: MRI of the cervical spine without and with IV contrast wasperformed. FINDINGS: Cervical spine: Vertebral body heights are maintained. There are no acute fracture compression deformities. There are no aggressive osseous lesions. Multilevel intervertebral degenerative disc changes are observed,greatest at , C5-6 and C6-7, demonstrating intervertebral discdesiccation, loss of height and central posterior disc bulging withoutcord compression, secondary myelomalacia or syrinx. There is no spinal cord compression. The spinal cord maintains normal signal. Thoracic spine: There are no aggressive osseous lesions. Osseous hemangiomas are noted. Multilevel Schmorl's node deformities are seen. The spinal cord maintains normal signal. IMPRESSION: No evidence of osseous metastasis within the cervical or thoracicspine.. No spinal cord compression. Degenerative changes within the cervical and thoracic spine. ACTIONABLE ITEMS/RECOMMENDATIONS: None. Melissa Palacio APRN IMG MRI ORDERA BLES * MRI Breast Bilateral with and without Contrast incl CAD (03/26/2023 12:49 PM CDT) Anatomical Region Laterality Modality Breast Bilateral Magnetic Resonan ce 03/26/2023 1:25 PM CDT Impressions 03/26/2023 1:32 PM CDT There is no evidence of malignancy in either breast. No suspicious MRI finding to explain the right breast pain. Clinical follow-up is recommended. Extra-Mammary Actionable Findings/Recommendations: None ACR BI-RADS Category: 2. Recommend annual surveillance. Narrative 03/26/2023 1:32 PM CDT FULL RESULT: Examination: MRI BREAST BILATERAL W WO CONTRAST INCL CAD, 03/26/2023 12:49 PM Clinical History: 72-year-old woman with right breast pain. Indication: Breast pain. Comparison: Breast MRI - no prior. Mammogram and ultrasound examinations from 11/27/2022. Technique: Bilateral breast MRI was performed before and after the intravenous administration of 8.5 mL of Gadavist per protocol. The following sequences were obtained on a 3T : axial noncontrast T1-weighted, axial pre- and 4 postcontrast T1-weighted series, delayed postcontrast sagittal fat-suppressed T1-weighted, axial T2-weighted, axial DWI with ADC mapping [b 100, 800]. Serial subtraction images were generated during post-processing. Smart CubeaCAD was used for kinetic assessment. Findings: Breast composition: Scattered fibroglandular tissue. Early background parenchymal enhancement: Minimal. Right breast: Post surgical changes related to breast conservation therapy are identified. No suspicious mass or nonmass enhancement is identified. Left breast: No suspicious mass or nonmass enhancement is identified. Diane Basins, Bilateral: There is no lymphadenopathy in the visualized bilateral axillary or internal mammary regions. Procedure Note Carolina Noble MD - 03/26/2023 FULL RESULT: Examination: MRI BREAST BILATERAL W WO CONTRAST INCL CAD, 03/26/2023 12:49PM Clinical History: 72-year-old woman with right breast pain. Indication: Breast pain. Comparison: Breast MRI - no prior. Mammogram and ultrasound examinationsfrom 11/27/2022. Technique: Bilateral breast MRI was performed before and after the intravenousadministration of 8.5 mL of Gadavist per protocol. The following sequenceswere obtained on a 3T : axial noncontrast T1-weighted, axial pre- and 4postcontrast T1-weighted series, delayed postcontrast sagittalfat-suppressed T1-weighted, axial T2-weighted, axial DWI with ADC mapping[b 100, 800]. Serial subtraction images were generated duringpost-processing. Innov[employer]D was used for kinetic assessment. Findings: Breast composition: Scattered fibroglandular tissue. Early background parenchymal enhancement: Minimal. Right breast: Post surgical changes related to breast conservation therapy areidentified. No suspicious mass or nonmass enhancement is identified. Left breast: No suspicious mass or nonmass enhancement is identified. Diane Basins, Bilateral: There is no lymphadenopathy in the visualized bilateral axillary orinternal mammary regions. IMPRESSION: There is no evidence of malignancy in either breast. No suspicious MRIfinding to explain the right breast pain. Clinical follow-up isrecommended. Extra-Mammary Actionable Findings/Recommendations: None ACR BI-RADS Category: 2. Recommend annual surveillance. Melissa Palacio APRN IMG MRI ORDERA BLES * (ABNORMAL) Total Cholesterol (03/11/2023 7:18 AM CDT) Chol 270(H) <=199 mg/dL [facility] Comment: ATP III Classification of Total Cholesterol Primary Target of Therapy (in mg/dL): <200 Desirable 200-239 Borderline high >=240 High Testing Performed at [facility] Compliance [facility]ide [facility], [address] [facility], [address], [place] [address] Blood 03/11/2023 7:18 AM CDT 03/11/2023 7:25 AM CDT Narrative [facility] - 03/11/2023 7:58 AM CDT Please mail appointments she doesn't use or have a computer. Melissa Palacio APRN LAB BLOOD CASANDRAE LINDA Anderson Organization Address City/State/ZIP Co de Phone Number [facility] [address] [place] [address] after 01/03/2023 Advance Directives Latest Code Status on File Code Status Date Activated Date Inactivated Comments Full Code 05/01/2022 5:41 PM 05/01/2022 7:52 PM Code Status History Code Status Date Activated Date Inactivated Comments Full Code 11/10/2019 6:19 AM 11/10/2019 12:30 PM Full Code 10/13/2019 5:10 PM 10/14/2019 10:40 AM Full Code 10/13/2019 1:00 PM 10/13/2019 5:10 PM Care Teams Pre K Teacher Relationship Specialty Start Date End Date Serafin Humphries PA [address] [place] [address] [address] [place] [address] PCP - External Referring 08/29/19 Tuan Morales MD [address] [address] PCP - External Primary Care Provider Family Practice 08/29/19 Tenzin Saucedo Jr., MD [address] [place] [address] PCP - General Breast Medical Oncology 10/24/19 Drew Vazquez MD [address] [place] [address] Consulting Physician Rheumatology 11/05/22 Matthew Soto DDS [address] [place] [address] Consulting Physician Dental Oncology 12/25/21 Yosvany Cole MD [address] [place] [address] Consulting Physician Internal Medicine 10/10/19 Farnaz Maza MD [address] [place] [address] Consulting Physician Neuro-Oncology 09/01/22 Jerry Angeles MD [address] [place] [address] Consulting Physician Internal Medicine 04/21/22 Ignacio Mendoza MD [address] [place] [address] Consulting Physician Endocrinology 08/14/21 Jean Watkins MD [address] [place] [address] Consulting Physician Plastic and Reconstructive Surgery 10/12/19 Eunice Finn MD [address] [place], [place] [id number] Consulting Physician Radiation Oncology 10/24/19
--- NOTE | 2024-01-03 10:43 | RAD REPORT ---
EXAM DESCRIPTION: [facility]01/03/2024 10:23 am CLINICAL HISTORY: Right leg pain and swelling. COMPARISON: None. FINDINGS: Right common femoral, superficial femoral, greater saphenous, popliteal and right posterio r tibial veins are compressible and demonstrate augmentation. Doppler demonstrates good flow. 2.7 centimeter heterogeneous fluid collection soft tissue right jordan Grayscale, color and spectral analysis performed on all vessels IMPRESSION: No evidence of deep venous thrombosis involving the right lower extremity. 2.7 centimeter heterogeneous fluid collection soft tissue right jordan presumably hematoma
--- NOTE | 2024-01-03 10:59 | RAD REPORT ---
EXAM DESCRIPTION: RAD - Tib Fib Right - 01/03/2024 10:40 am CLINICAL HISTORY: Right leg pain FINDINGS: No fracture is seen
--- NOTE | 2024-01-03 11:02 | EDPHYS ---
Physician Documentation [facility] Name: Kirsty Khan Age: 73 yrs Sex: Female : 1950 Arrival Date: 01/03/2024 Time: 09:34 Bed 13 Private MD: Tuan Morales E ED Physician Erich Galo HPI: 01/02 10:04 This 73 yrs old Female presents to ER via Ambulatory with complaints of Bump on leg. ec2 10:04 Patient arrives today for evaluation of a bump on the right leg. Patient states that ec2 she bumped into some type of object and subsequently is not having right anterior tibia swelling and pain. Patient reports history of blood thinner use, history of DVT. She is on Xarelto currently. Patient reports no other concerns.. Historical: - Allergies: 09:56 Aspirin; aa5 09:56 Augmentin; aa5 - PMHx: 09:56 Diabetes - NIDDM; DVT (Unknown); Right- Breast Cancer (Unknown); Hypothyroidism; aa5 - PSHx: 09:56 Morro mastectomy; aa5 - Immunization history:: Adult Immunizations unknown. - Infectious Disease History:: Denies. - Social history:: Smoking status: Patient denies any tobacco usage or history of. ROS: 10:04 Constitutional: as per hpi ec2 Exam: 10:04 Constitutional: GEN: NAD Head: atraumatic Eyes: EOMI Ears: External ears are ec2 normal. CV: regular rate LUNGS: no respiratory distress ABD: non-distended SKIN: no evidence of rashes MSK: Right anterior tibia with swelling over the mid tibia. Intact distal neurovascular status. NEURO: moves all extremities equally Vital Signs: 09:37 BP 155 / 86; Pulse 87; Resp 16 S; Temp 97.9(TE); Pulse Ox 98% on R/A; aa5 MDM: 09:49 Patient medically screened. ec2 10:04 Data reviewed: vital signs. ED course: Patient arrives today for right anterior tibia ec2 pain. Examination remarkable for MSK findings as above. Will obtain radiograph of the right tip/fib. Will also obtain ultrasound. Evaluating for DVT which I doubt, suspect hematoma. Additionally evaluating for tibia fracture. . 11:01 ED course: Tib-fib x-ray independently reviewed and interpreted by me, shows no bony ec2 fracture. Ultrasound shows hematoma, no DVT. Will discharge home. Prescriptions were hematoma. Return precautions given . 01/02 09:58 Order name: Tib Fib Right XRAY; Complete Time: 11:00 ec2 01/02 09:58 Order name: Extremity Venous Uni Ltd US; Complete Time: 11:00 ec2 01/02 11:04 Order name: Grayson Wrap; Complete Time: 11:12 ec2 Administered Medications: No medications were administered Disposition Summary: 01/03/24 11:01 Discharge Ordered Notes: Location: Home ec2 Condition: Stable ec2 Diagnosis - Pain in right lower leg ec2 - Right Tibia Hematoma ec2 Followup: ec2 - With: Private Physician - When: - Reason: Re-evaluation by your physician Discharge Instructions: - Discharge Summary Sheet ec2 - Musculoskeletal Pain ec2 Forms: - Medication Reconciliation Form ec2 - Antibiotic Education ec2 - Prescription Opioid Use ec2 - Patient Portal Instructions ec2 - Leadership Thank You Letter ec2 Signatures: Dispatcher [employer] Holley Garcia RN RN aa5 Erich Galo MD MD ec2
--- NOTE | 2024-01-03 11:02 | ER ---
Nurse's Notes [facility] Name: Kirsty Khan Age: 73 yrs Sex: Female : 1950 Arrival Date: 01/03/2024 Time: 09:34 Bed 13 Private MD: Tuan Morales E Diagnosis: Pain in right lower leg;Right Tibia Hematoma Presentation: 01/02 09:37 Chief complaint: Patient states: Fell on Wednesday and now has "lump" to right jordan. aa5 09:37 Acuity: BIJAL 4 aa5 09:37 Method Of Arrival: Ambulatory aa5 09:37 Coronavirus screen: At this time, the client does not indicate any symptoms associated aa5 with coronavirus-19. Ebola Screen: Patient denies travel to an Ebola-affected area in the 21 days before illness onset. Initial Sepsis Screen: Does the patient meet any 2 criteria? No. Patient's initial sepsis screen is negative. Does the patient have a suspected source of infection? No. Patient's initial sepsis screen is negative. Risk Assessment: Do you want to hurt yourself or someone else? Patient reports no desire to harm self or others. Onset of symptoms was December 31, 2023. Historical: - Allergies: 09:56 Aspirin; aa5 09:56 Augmentin; aa5 - PMHx: 09:56 Diabetes - NIDDM; DVT (Unknown); Right- Breast Cancer (Unknown); Hypothyroidism; aa5 - PSHx: 09:56 Morro mastectomy; aa5 - Immunization history:: Adult Immunizations unknown. - Infectious Disease History:: Denies. - Social history:: Smoking status: Patient denies any tobacco usage or history of. Screenin:02 [facility] ED Fall Risk Assessment (Adult) History of falling in the last 3 months, kc6 including since admission Yes- single mechanical fall (1 pt) Confusion or Disorientation No (0 pts) Intoxicated or Sedated No (0 pts) Impaired Gait No (0 pts) Mobility Assist Device Used Yes (1 pt) Altered Elimination No (0 pt) Score/Fall Risk Level 0 - 2 = Low Risk. Abuse screen: Denies threats or abuse. Denies injuries from another. Nutritional screening: No deficits noted. Tuberculosis screening: No symptoms or risk factors identified. Assessment: 10:03 General: Appears in no apparent distress. comfortable, well groomed, well developed, kc6 Behavior is calm, cooperative, appropriate for age. Pain: Complains of pain in right leg. Neuro: Level of Consciousness is awake, alert, obeys commands, Oriented to person, place, time, situation, Appropriate for age. Cardiovascular: Capillary refill < 3 seconds. Respiratory: Airway is patent Trachea midline Respiratory effort is even, unlabored, Respiratory pattern is regular, symmetrical. GI: No signs and/or symptoms were reported involving the gastrointestinal system. : No signs and/or symptoms were reported regarding the genitourinary system. EENT: No signs and/or symptoms were reported regarding the EENT system. Derm: Skin is fragile, Skin is dry, Skin is normal, Skin temperature is warm Bruising that is dark purple, on right jordan. Musculoskeletal: No signs and/or symptoms reported regarding the musculoskeletal system. Circulation, motion, and sensation intact. Capillary refill < 3 seconds, Range of motion: intact in all extremities. Vital Signs: 09:37 BP 155 / 86; Pulse 87; Resp 16 S; Temp 97.9(TE); Pulse Ox 98% on R/A; aa5 ED Course: 09:37 Patient arrived in ED. mr 09:37 Arm band placed on Patient placed in an exam room, on a stretcher. aa5 09:38 Tuan Morales MD is Private Physician. mr 09:44 Erich Galo MD is Attending Physician. ec2 09:46 Niecy Rosado, ROMAN is Primary Nurse. kc6 10:03 Triage completed. aa5 10:03 Patient has correct armband on for positive identification. Bed in low position. Call kc6 light in reach. Side rails up X 1. Client placed on continuous cardiac and pulse oximetry monitoring. NIBP monitoring applied. Pillow given. 10:25 Extremity Venous Uni Ltd US In Process Unspecified. EDMS 10:42 Tib Fib Right XRAY In Process Unspecified. EDMS 11:12 Grayson wrap to right jordan. kc6 11:12 No provider procedures requiring assistance completed. Patient did not have IV access kc6 during this emergency room visit. Administered Medications: No medications were administered Medication: 11:12 VIS not applicable for this client. kc6 Outcome: 11:01 Discharge ordered by . ec2 11:12 Discharged to home ambulatory, with family, kc6 11:12 Condition: good 11:12 Discharge instructions given to patient, Instructed on discharge instructions, follow up and referral plans. Demonstrated understanding of instructions, follow-up care, 11:12 Patient left the ED. kc6 Signatures: Dispatcher [employer] BAO AnantTeodora, Reg Reg mr Porter, Holley, RN RN aa5 Niecy Rosado RN RN kc6 Erich Galo MD MD ec2 Corrections: (The following items were deleted from the chart) 10:03 10:02 [facility] ED Fall Risk Assessment (Adult) History of falling in the last 3 months, kc6 including since admission Yes- single mechanical fall (1 pt) Confusion or Disorientation No (0 pts) Intoxicated or Sedated No (0 pts) Impaired Gait No (0 pts) Mobility Assist Device Used No (0 pt) Altered Elimination No (0 pt) Score/Fall Risk Level 0 - 2 = Low Risk kc6
[2024-01-03 12:00] VITALS: BP 155/86; TEMP 97.9; O2SAT 98
== END 2024-01-03 11:12 | disposition home or self-care (01) ==
LOC: ER 09:34
DX: S80.11XA Contusion of right lower leg, initial encounter (principal); Z86.718 Personal history of other venous thrombosis and embolism; Z79.01 Long term (current) use of anticoagulants; Z88.1 Allergy status to other antibiotic agents; Z88.6 Allergy status to analgesic agent
CPT/HCPCS: 93971; 99283

== ENCOUNTER 2024-09-14 12:21 | Emergency (ER) | payer OTHER ==
--- OUTSIDE RECORDS SUMMARY | 2024-09-14 12:29 | XMS REPORT | Clinical Summary ---
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 Mean Cell Hemoglobin Concentration 32.0 31.1 - 35.2 g/dL 04/13/2024 10:26 AM [facility] RDW-SD 44.9 37.5 - 49.7 fL 04/13/2024 10:26 AM [facility] Red Cell Diameter Width 13.1 11.6 - 15.5 % 04/13/2024 10:26 AM [facility] Platelet 211 160 - 397 K/uL 04/13/2024 10:26 AM [facility] Comment:This result was prev iously suppressed from the chart. Mean Platelet Volume 11.0 9.1 - 12.6 fL 04/13/2024 10:26 AM [facility] Comment:This result was prev iously suppressed from the chart. INRBC 0.0 0.0 - 0.1 /100 WBC 04/13/2024 10:26 AM [facility] Comment: The INRBC (instrument NRBC) value reflects the enumeration of nucleated red blood cells contained in a 200uL sample of whole blood analyzed by the instrument. This value may differ from the NRBC value reported in a manual differential, which is based on a 100 cell differential. This result was previously suppressed from the chart. Neutrophil % 44.4 43.2 - 72.7 % 04/13/2024 10:26 AM [facility] Comment:This result was prev iously suppressed from the chart. Lymphocyte % 45.8 16.8 - 46.2 % 04/13/2024 10:26 AM [facility] Comment:This result was prev iously suppressed from the chart. Monocyte % 5.8 5.1 - 12.5 % 04/13/2024 10:26 AM [facility] Comment:This result was prev iously suppressed from the chart. Eosinophil % 2.9 0.4 - 6.3 % 04/13/2024 10:26 AM [facility] Comment:This result was prev iously suppressed from the chart. Basophil % 0.6 0.2 - 1.4 % 04/13/2024 10:26 AM [facility] Comment:This result was prev iously suppressed from the chart. IGRE % 0.5 0.1 - 1.5 % 04/13/2024 10:26 AM [facility] Comment: The IGRE% includes Metamyelocytes, Myelocytes and Promyelocytes. This result was previously suppressed from the chart. Neutrophil Abs 5.65 1.95 - 7.25 K/uL 04/13/2024 10:26 AM [facility] Comment:This result was prev iously suppressed from the chart. Lymphocyte Abs 5.82(H) 1.01 - 3.24 K/uL 04/13/2024 10:26 AM [facility] Comment:This result was prev iously suppressed from the chart. Monocyte Abs 0.74 0.24 - 0.85 K/uL 04/13/2024 10:26 AM [facility] Comment:This result was prev iously suppressed from the chart. Eosinophil Abs 0.37 0.02 - 0.50 K/uL 04/13/2024 10:26 AM [facility] Comment:This result was prev iously suppressed from the chart. Basophil Abs 0.08 0.02 - 0.09 K/uL 04/13/2024 10:26 AM [facility] Comment:This result was prev iously suppressed from the chart. IG Abs 0.06 0.01 - 0.12 K/uL 04/13/2024 10:26 AM [facility] Comment:This result was prev iously suppressed from the chart. Blood Peripheral blood specimen / Unknown Venipuncture / Unknown 04/13/2024 9:31 AM CDT 04/13/2024 9:32 AM T Melissa Palacio APRN LAB BLOOD ORDERABLES F inal Result [facility] [address] [place] [address] * (ABNORMAL) Glucose, Fasting (04/13/2024 9:31 AM CDT) Only the most recent of2 resultswithin the time period is included. Glucose Fasting 131(H) 70 - 99 mg/dL 04/13/2024 10:07 AM CDT [facility] Is patient fasting? Yes 04/13/2024 10:07 AM CDT [facility] Blood Peripheral blood specimen / Unknown Venipuncture / Unknown 04/13/2024 9:31 AM CDT 04/13/2024 9:32 AM CDT [facility] - 04/13/2024 10:07 AM CDT Impaired fasting glucose (increased risk for diabetes or prediabetes): 100 125 mg/dL Diabetes mellitus: => 126 mg/dL Melissa Palacio APRN LAB BLOOD ORDERABLES F inal Result Performing Organization Address [facility] de Phone Number [address] [place] [address] * CA 15-3 (04/13/2024 9:31 AM CDT) Only the most recent of2 resultswithin the time period is included. CA 15-3 19.0 <=25.0 U/mL 04/13/2024 10:34 AM T [facility] Blood Peripheral blood specimen / Unknown Venipuncture / Unknown 04/13/2024 9:31 AM CDT 04/13/2024 9:32 AM CDT [facility] - 04/13/2024 10:34 AM CDT Results greater than 2400.0 U/mL may not be reliable due to matrix effect with extended dilution as it exceeds the mining support worker's recommended limit. Caution should be exercised when interpreting such values and done in conjunction with clinical context. This test is measured by electrochemiluminescence immunoassay on [employer] Kately[employer] immunoassay analyzers. Results obtained in different methods are not interchangeable. Melissafawn Palacio SAP SOLUTION MANAGER CONSULTANT LAB BLOOD ORDERABLES F inal Result Performing Organization Address [facility] Co de Phone Number [address] [place] [address] * ALT (04/13/2024 9:31 AM CDT) Only the most recent of2 resultswithin the time period is included. ALT 22 <=33 U/L 04/13/2024 10: 07 AM CDT [facility] Blood Peripheral blood specimen / Unknown Venipuncture / Unknown 04/13/2024 9:31 AM CDT 04/13/2024 9:32 AM CDT Melissa Palacio APRN LAB BLOOD ORDERABLES F inal Result Performing Organization Address City/[facility]/ZIP Co de Phone Number [address] [place] [address] * Aspartate Aminotransferase (04/13/2024 9:31 AM CDT) Only the most recent of2 resultswithin the time period is included. AST 29 <=32 U/L 04/13/2024 10: 07 AM CDT [facility] Blood Peripheral blood specimen / Unknown Venipuncture / Unknown 04/13/2024 9:31 AM CDT 04/13/2024 9:32 AM CDT Melissa Palacio APRN LAB BLOOD ORDERABLES F inal Result [address] [place] [address] * Phosphorus Level (04/13/2024 9:31 AM CDT) Only the most recent of3 resultswithin the time period is included. Phosphorus Level 3.4 2.5 - 4.5 mg/dL 04/13/2024 10:07 AM CDT [facility] Blood Peripheral blood specimen / Unknown Venipuncture / Unknown 04/13/2024 9:31 AM CDT 04/13/2024 9:32 AM CDT Melissa Palacio APRN LAB BLOOD ORDERABLES F inal Result Performing Organization Address [facility] Co de Phone Number [address] [place] [address] * Alkaline Phosphatase (04/13/2024 9:31 AM CDT) Only the most recent of3 resultswithin the time period is included. Alkaline Phosphatase 77 35 - 104 U/L 04/13/2024 10:07 AM CDT [facility] Blood Peripheral blood specimen / Unknown Venipuncture / Unknown 04/13/2024 9:31 AM CDT 04/13/2024 9:32 AM CDT Melissa Palacio APRN LAB BLOOD ORDERABLES F inal Result Performing Organization Address [facility] de Phone Number [address] [place] [address] * (ABNORMAL) Magnesium Level (04/13/2024 9:31 AM CDT) Only the most recent of2 resultswithin the time period is included. Magnesium Level 1.5(L) 1.6 - 2.6 mg/dL 04/13/2024 10:07 AM CDT [facility] Blood Peripheral blood specimen / Unknown Venipuncture / Unknown 04/13/2024 9:31 AM CDT 04/13/2024 9:32 AM CDT Melissa Palacio APRN LAB BLOOD ORDERABLES F inal Result Performing Organization Address [facility] Co de Phone Number [address] [place] [address] * Creatinine (04/13/2024 9:31 AM CDT) Only the most recent of2 resultswithin the time period is included. Creatinine 0.51 0.51 - 0.95 mg/dL 04/13/2024 10:07 AM CDT [facility] eGFR 100 >=60 mL/min/1.7 3 sq. m 04/13/2024 10:07 AM T [facility] Comment: The eGFRcr is calculated [...] blood specimen / Unknown Venipuncture / Unknown 04/13/2024 9:31 AM CDT 04/13/2024 9:32 AM CDT Melissa Palacio APRN LAB BLOOD ORDERABLES F inal Result [facility] [address] [place] [address] * Total Cholesterol (04/13/2024 9:31 AM CDT) [facility] Signature Cholesterol Total 156 <=199 mg/dL 04/13/2024 10:07 AM T [facility] Is patient fasting? Yes 04/13/2024 10:07 AM [facility] Blood Peripheral blood specimen / Unknown Venipuncture / Unknown 04/13/2024 9:31 AM CDT 04/13/2024 9:32 AM CDT Narrative [facility] - 04/13/2024 10:07 AM CDT ATP III Classification of Total Cholesterol - Primary Target of Therapy (in mg/dL): <200 Desirable 200-239 Borderline high >=240 High [employer] SAP SOLUTION MANAGER CONSULTANT LAB BLOOD ORDERABLES F inal Result Performing Organization Address City/[facility] Co de Phone Number [address] [place] [address] * Calcium Level (04/13/2024 9:31 AM CDT) Only the most recent of2 resultswithin the time period is included. Calcium Level Total 9.7 8.2 - 10.2 mg/dL 04/13/2024 10:07 AM CDT [facility] Blood Peripheral blood specimen / Unknown Venipuncture / Unknown 04/13/2024 9:31 AM CDT 04/13/2024 9:32 AM CDT [employer] SAP SOLUTION MANAGER CONSULTANT LAB BLOOD ORDERABLES F inal Result Performing Organization Address [facility] Phone Number [address] [place] [address] * Bilirubin Total (04/13/2024 9:31 AM CDT) Only the most recent of2 resultswithin the time period is included. Bilirubin Total 0.3 0.0 - 1.2 mg/dL 04/13/2024 10:07 AM CDT [facility] Blood Peripheral blood specimen / Unknown Venipuncture / Unknown 04/13/2024 9:31 AM CDT 04/13/2024 9:32 AM CDT Narrative [facility] - 04/13/2024 10:07 AM CDT Indocyanine Green (ICG) may cause falsely elevated bilirubin results. Total and direct bilirubin must not be measured from samples containing indocyanine green. False elevation of total bilirubin can be seen in patients with IgG concentrations above 28 g/L. [employer] SAP SOLUTION MANAGER CONSULTANT LAB BLOOD ORDERABLES F inal Result Performing Organization Address [facility] Co de Phone Number [address] [place] [address] * (ABNORMAL) Electrolyte Panel (04/13/2024 9:31 AM CDT) Only the most recent of2 resultswithin the time period is included. Sodium Level 138 136 - 145 mmol/L 04/13/2024 10:07 AM CDT [facility] Potassium Level 5.1(H) 3.4 - 4.5 mmol/L 04/13/2024 10:07 AM CDT [facility] Chloride 100 98 - 107 mmol/L 04/13/2024 10:07 AM CDT [facility] CO2 25 22 - 29 mmol/L 04/13/2024 10:07 AM T [facility] Anion Gap 13 4 - 14 mmol/L 04/13/2024 10:07 AM CDT [facility] Blood Peripheral blood specimen / Unknown Venipuncture / Unknown 04/13/2024 9:31 AM CDT 04/13/2024 9:32 AM CDT Melissa Palacio APRN LAB BLOOD ORDERABLES F inal Result [facility] [address] [place] [address] * NM Bone Mineral Density Both Hips and Spine (04/04/2024 10:23 AM CDT) Anatomical Region Laterality Modality Spine Nuclear Medicine 04/04/2024 10:2 4 AM CDT Impressions 04/04/2024 11:50 AM CDT 1. Osteopenia based on measurements in the lumbar spine, bilateral femoral necks and right total hip. 2. Statistically significant increase in bone mineral density of the lumbar spine and bilateral femoral necks since 2022; these may represent scan to scan variation and continued close follow-up with attention these regions is suggested. I personally reviewed these image(s) along with the resident's/fellow's interpretations, certify that if a procedure was performed I was physically present, and agree with the final report. Narrative 04/04/2024 11:50 AM CDT FULL RESULT: Examination: Bone Mineral Density (DXA), 04/04/2024 Clinical History: 73-year-old postmenopausal female with breast cancer on hormonal therapy and with reported osteoporosis. Indication: Assessment of bone mineral density.. Comparison: Bone mineral density scan from 04/01/2023 Technique: Bone mineral density was obtained using Hologic dual-energy X-ray absorptiometry. L1 is again excluded from the analysis. Findings: The findings are provided in the below table(s). Bone Density: Region Exam Date BMD T- Z- g/cm2 Score Score AP Spine (L2, L3, L4) 04/04/2024 0.890 -1.7 0.6 Femoral Neck (Left) 04/04/2024 0.704 -1.3 0.6 Total Hip (Left) 04/04/2024 0.842 -0.8 0.8 Femoral Neck (Right) 04/04/2024 0.715 -1.2 0.7 Total Hip (Right) 04/04/2024 0.777 -1.4 0.2 For postmenopausal women and men age 50 and over, the World Health Organization criteria for BMD interpretation classify patients as: Normal (T-score at or above -1.0), Osteopenia (T-score between -1.0 and -2.5), or Osteoporosis (T-score at or below -2.5). Previous Exams: Region Exam Age BMD T-score BMD Change vs Date g/cm2 Baseline Previous AP Spine (L2-L4) 04/04/2024 73 0.890 -1.7 6.4%* 12.7%* 04/01/2023 72 0.789 -2.6 -5.6%* -2.8% 03/31/2022 71 0.812 -2.4 -2.9% -2.9% 03/27/2021 70 0.836 -2.2 Total Hip(Left) 04/04/2024 73 0.842 -0.8 -6.8%* -0.2% 04/01/2023 72 0.844 -0.8 -6.6%* -0.4% 03/31/2022 71 0.847 -0.8 -6.2%* -6.2%* 03/27/2021 70 0.904 -0.3 Femoral Neck(Left) 04/04/2024 73 0.704 -1.3 11.0%* 17.2%* 04/01/2023 72 0.601 -2.2 -5.2% -2.1% 03/31/2022 71 0.614 -2.1 -3.2% -3.2% 03/27/2021 70 0.634 -1.9 Total Hip(Right) 04/04/2024 73 0.777 -1.4 -8.7%* -2.3% 04/01/2023 72 0.795 -1.2 -6.6%* -6.1%* 03/31/2022 71 0.846 -0.8 -0.5% -0.5% 03/27/2021 70 0.851 -0.7 Femoral Neck(Right) 04/04/2024 73 0.715 -1.2 1.8% 7.0%* 04/01/2023 72 0.669 -1.6 -4.8% 0.9% 03/31/2022 71 0.663 -1.7 -5.7% -5.7% 03/27/2021 70 0.703 -1.3 *Denotes significance at 95% confidence level, site specific LSC for AP Spine = 0.029 g/cm2, site specific LSC for Total Hip = 0.033 g/cm2, site specific LSC for Femoral Neck = 0.045 g/cm2, LSC for 1/3 Forearm = 0.023 g/cm2 Procedure Note Rio Sahni MD - 04/04/2024 FULL RESULT: Examination: Bone Mineral Density (DXA), 04/04/2024 Clinical History: 73-year-old postmenopausal female with breast cancer onhormonal therapy and with reported osteoporosis. Indication: Assessment of bone mineral density.. Comparison: Bone mineral density scan from 04/01/2023 Technique: Bone mineral density was obtained using Hologic [id number] absorptiometry. L1 is again excluded from the analysis. Findings: The findings are provided in the below table(s). Bone Density: Region Exam Date BMD T- Z- g/cm2 Score Score AP Spine (L2, L3, L4) 04/04/2024 0.890 -1.7 0.6 Femoral Neck (Left) 04/04/2024 0.704 -1.3 0.6 Total Hip (Left) 04/04/2024 0.842 -0.8 0.8 Femoral Neck (Right) 04/04/2024 0.715 -1.2 0.7 Total Hip (Right) 04/04/2024 0.777 -1.4 0.2 For postmenopausal women and men age 50 and over, the World Health Organization criteria for BMD interpretation classify patients as: Normal (T-score at or above -1.0), Osteopenia (T-score between -1.0 and -2.5), or Osteoporosis (T-score at or below -2.5). Previous Exams: Region Exam Age BMD T-score BMD Change vs Date g/cm2 Baseline Previous AP Spine (L2-L4) 04/04/2024 73 0.890 -1.7 6.4%* 12.7%* 04/01/2023 72 0.789 -2.6 -5.6%* -2.8% 03/31/2022 71 0.812 -2.4 -2.9% -2.9% 03/27/2021 70 0.836 -2.2 Total Hip(Left) 04/04/2024 73 0.842 -0.8 -6.8%* -0.2% 04/01/2023 72 0.844 -0.8 -6.6%* -0.4% 03/31/2022 71 0.847 -0.8 -6.2%* -6.2%* 03/27/2021 70 0.904 -0.3 Femoral Neck(Left) 04/04/2024 73 0.704 -1.3 11.0%* 17.2%* 04/01/2023 72 0.601 -2.2 -5.2% -2.1% 03/31/2022 71 0.614 -2.1 -3.2% -3.2% 03/27/2021 70 0.634 -1.9 Total Hip(Right) 04/04/2024 73 0.777 -1.4 -8.7%* -2.3% 04/01/2023 72 0.795 -1.2 -6.6%* -6.1%* 03/31/2022 71 0.846 -0.8 -0.5% -0.5% 03/27/2021 70 0.851 -0.7 Femoral Neck(Right) 04/04/2024 73 0.715 -1.2 1.8% 7.0%* 04/01/2023 72 0.669 -1.6 -4.8% 0.9% 03/31/2022 71 0.663 -1.7 -5.7% -5.7% 03/27/2021 70 0.703 -1.3 *Denotes significance at 95% confidence level, site specific LSC for APSpine = 0.029 g/cm2, site specific LSC for Total Hip = 0.033 g/cm2, sitespecific LSC for Femoral Neck = 0.045 g/cm2, LSC for 1/3 Forearm = 0.023 g/cm2 IMPRESSION: 1. Osteopenia based on measurements in the lumbar spine, bilateralfemoral necks and right total hip. 2. Statistically significant increase in bone mineral density of thelumbar spine and bilateral femoral necks since 2022; these may representscan to scan variation and continued close follow-up with attention theseregions is suggested. I personally reviewed these image(s) along with the resident's/fellow'sinterpretations, certify that if a procedure was performed I wasphysically present, and agree with the final report. Ignacio Mendoza MD IMG DXA ORDERABLES Final Result * PTH Intact (04/04/2024 9:10 AM CDT) Pathologist [facility] Parathyroid Hormone Intact 43.2 15.0 - 65.0 pg/mL 04/04/2024 10:02 AM T [facility] Blood Venipuncture / Unknown 04/04/2024 9:10 AM CDT 04/04/2024 9:14 AM CDT Ignacio Mendoza MD LAB BLOOD ORDERABLES Final Resul t [facility] [address] [place] [address] * (ABNORMAL) Basic Metabolic Panel- Total Calcium (04/04/2024 9:10 AM CDT) Pathologist [facility] eGFR 101 >=60 mL/min/1. 73 sq. m 04/04/2024 9:55 AM CDT [facility] Comment: The eGFRcr is calculated [...] G1 nor G2 fulfill criteria for CKD. Calcium Level Total 9.7 8.2 - 10.2 mg/dL 04/04/2024 9:55 AM T [facility] Sodium Level 142 136 - 145 mmol/L 04/04/2024 9:55 AM T [facility] Potassium Level 4.7(H) 3.4 - 4.5 mmol/L 04/04/2024 9:55 AM T [facility] Chloride 101 98 - 107 mmol/L 04/04/2024 9:55 AM T [facility] CO2 28 22 - 29 mmol/L 04/04/2024 9:55 AM T [facility] Anion Gap 13 4 - 14 mmol/L 04/04/2024 9:55 AM T [facility] Creatinine 0.49(L) 0.51 - 0.95 mg/dL 04/04/2024 9:55 AM T [facility] BUN 11 6 - 23 mg/dL 04/04/2024 9:55 AM T [facility] Glucose Level 133(H) 70 - 99 mg/dL 04/04/2024 9:55 AM T [facility] Comment: Effective 03/25/16, the glucose reference intervals have been updated based on [place] Diabetes [employer] guidelines (Standards of Medical Care in Diabetes 2016. Diabetes Care 2016; 39: S13-S22). Fasting blood glucose: Normal: 70-99 mg/dL Impaired fasting glucose (increased risk for diabetes or pre-diabetes): 100-125 mg/dL Diabetes mellitus: >/=126 mg/dL Random blood glucose: Normal: 70-199 mg/dL Note: Random glucose >100 mg/dL is associated with increased risk for diabetes. Blood Venipuncture / Unknown 04/04/2024 9:10 AM CDT 04/04/2024 9:14 AM CDT Ignacio Mendoza MD LAB BLOOD ORDERABLES Final Resul t [address] [place] [address] * (ABNORMAL) CTX Beta Crosslaps (04/04/2024 9:10 AM CDT) CTX Beta Crosslaps 92(L) 152 - 858 pg/mL 04/04/2024 10:21 AM CDT [facility] Is patient fasting? Yes 04/04/2024 10:21 AM CDT [facility] Blood Venipuncture / Unknown 04/04/2024 9:10 AM CDT 04/04/2024 9:14 AM CDT us Ignacio Mendoza MD LAB BLOOD ORDERABLES Final Resul t Performing Organization Address City/[facility]/ZIP Co de Phone Number [facility] Unless otherwise noted, all lab tests performed by: Division of Pathology and Laboratory Medicine [facility] [place] [address] [place] [address] * Vitamin D 25OH (04/04/2024 9:10 AM CDT) Only the most recent of2 resultswithin the time period is included. Vitamin D 25 OH 34 30 - 100 ng/mL 04/04/2024 10:25 AM CDT [facility] Blood Venipuncture / Unknown 04/04/2024 9:10 AM CDT 04/04/2024 9:14 AM CDT Narrative [facility] - 04/04/2024 10:25 AM CDT Reference Range: Deficiency: <=20 ng/mL Insufficiency: 21-29 ng/mL Sufficiency: 30-100 ng/mL Potential toxicity: >100 ng/mL us Ignacio Mendoza MD LAB BLOOD ORDERABLES Final Resul t Performing Organization Address City/[facility] Co de Phone Number [facility] Unless otherwise noted, all lab tests performed by: Division of Pathology and Laboratory Medicine [address] [place] [id number] * TSH (04/04/2024 9:10 AM CDT) Thyroid Stimulating Hormone 3.47 0.27 - 4.20 mcunit/mL 04/04/2024 10:07 AM CDT [facility] Blood Venipuncture / Unknown 04/04/2024 9:10 AM CDT 04/04/2024 9:14 AM CDT Result Corina Mendoza MD LAB BLOOD ORDERABLES Final Resul t Performing Organization Address [facility] Phone Number [address] [place] [address] * Free T4 (04/04/2024 9:10 AM CDT) T4 (Thyroxine) Free 1.46 0.92 - 1.68 ng/dL 04/04/2024 10:07 AM CDT [facility] Blood Venipuncture / Unknown 04/04/2024 9:10 AM CDT 04/04/2024 9:14 AM CDT Result Corina Mendoza MD LAB BLOOD ORDERABLES Final Resul t Performing Organization Address [facility] Co de Phone Number [address] [place] [address] * Albumin Level (04/04/2024 9:10 AM CDT) Albumin Level 4.6 3.5 - 5.2 gm/dL 04/04/2024 9:55 AM CDT [facility] Blood Venipuncture / Unknown 04/04/2024 9:10 AM CDT 04/04/2024 9:14 AM CDT us Ignacio Mendoza MD LAB BLOOD ORDERABLES Final Resul t [address] [place] [address] * MRI Brain with and without Contrast (10/15/2023 5:28 PM [employer]) Anatomical Region Laterality Modality Head Magnetic Resonan ce 10/18/2023 6:06 PM [employer] Impressions 10/18/2023 6:09 PM [employer] No acute intracranial abnormality. No intracranial metastasis. ACTIONABLE ITEMS/RECOMMENDATIONS*: None. Narrative 10/18/2023 6:09 PM [employer] FULL RESULT: Examination: MRI BRAIN W WO [...] ITEMS/RECOMMENDATIONS*: None. Melissa Palacio APRN IMG MRI ORDERABLES Fin al Result * (ABNORMAL) Differential (10/15/2023 7:53 AM [facility]) Total Cells 100 10/15/2023 8:[address] [facility] Manual Neutrophil % 47.0 43.2 - 72.7 % 10/15/2023 8:[address] [facility] Comment:The Neutrophil count includes Bands. Manual Lymphocyte % 43.0 16.8 - 46.2 % 10/15/2023 8:[address] [facility] Manual Monocyte % 8.0 5.1 - 12.5 % 10/15/2023 8:[address] [facility] Manual Eosinophil % 2.0 0.4 - 6.3 % 10/15/2023 8:[address] [facility] Metamyelocyte % 8:[address] [facility] Comment:The Metamyelocyte co unt includes Myelocytes. Manual Neutrophil Abs 5.92 1.95 - 7.25 K/uL 10/15/2023 8:[address] [facility] Manual Lymphocyte Abs 5.42(H) 1.01 - 3.24 K/uL 10/15/2023 8:[address] [facility] Manual Monocyte Abs 1.01(H) 0.24 - 0.85 K/uL 10/15/2023 8:[address] [facility] Manual Eosinophil Abs 0.25 0.02 - 0.50 K/uL 10/15/2023 8:[address] [facility] RBC Morphology NORMAL 10/15/2023 8:[address] [facility] PLT Morph Normal Normal 10/15/2023 8:[address] [facility] Blood Peripheral blood specimen / Unknown Venipuncture / Unknown 10/15/2023 7:53 AM [facility] 10/15/2023 7:54 AM [facility] us Elton Kraus MD LAB BLOOD ORDERABLES Final Resul t JYOTI GUNN [address] [place] [address] * Mammography Digital Diagnostic Bilateral with Nakul (09/30/2023 12:51 PM [facility]) Anatomical Region Laterality Modality Breast Bilateral Mammography 09/30/2023 1:15 PM [facility] Impressions 09/30/2023 1:15 PM [facility] There is no mammographic evidence of malignancy. Follow-up mammogram in 1 year is recommended. BI-RADS Category 2: Benign Finding(s) Narrative 09/30/2023 1:15 PM [facility] CLINICAL INDICATION: Patient is a 73 year old female and is seen for history of breast cancer MAMMO DIGITAL DIAGNOSTIC BILATERAL W NAKUL Digital Mammogram evaluated with Computer Aided Detection (CAD). COMPARISON: The present examination has been compared to prior imaging studies performed at an outside location on 11/14/2018, at [facility] on 11/27/2022, and at [facility] on 09/12/2019, 11/26/2020 and 12/25/2021. FINDINGS: [...] at an outside location on 11/14/2018, at [facility] on 11/27/2022, and at [facility] on 09/12/2019, 11/26/2020 and 12/25/2021. FINDINGS: [...] 2: Benign Finding(s) Melissa Palacio APRN IMG MAMMOGRAPHY ORDERA BLES Final Result * BUN (09/30/2023 10:19 AM [facility]) BUN 14 6 - 23 mg/dL 09/30/2023 11:05 AM [facility] Blood Peripheral blood specimen / Unknown Venipuncture / Unknown 09/30/2023 10:19 AM [facility] 09/30/2023 10:26 AM [facility] Melissa Palacio APRN LAB BLOOD ORDERABLES F inal Result [facility] [address] [place] [address] after 09/15/2023 Insurance [employer] MEDICARE PPO [employer] MEDICARE PPO Advance Directives * Full Code (Latest Code Status on File) Date Activated Date Inactivated Comments 05/01/2022 5:41 PM 05/01/2022 7:52 PM * Full Code Date Activated Date Inactivated Comments 11/10/2019 6:19 AM 11/10/2019 12:30 PM * Full Code Date Activated Date Inactivated Comments 10/13/2019 5:10 PM 10/14/2019 10:40 AM * Full Code Date Activated Date Inactivated Comments 10/13/2019 1:00 PM 10/13/2019 5:10 PM Care Teams Acid Conditioner Relationship Specialty Start Date End Date Serafin Humphries PA [facility] [address] PCP - External Referring 08/29/19 Tuan Morales [place] [address] [email or web address] - External Primary Care Provider [facility] 08/29/19 Tenzin Saucedo Jr., MD [address] [place] [id number] [email or web address] PCP - General Breast Medical Oncology 10/24/19 Drew Vazquez MD [address] [place] [phone] [email or web address] Consulting Physician Rheumatology 11/05/22 Matthew Soto DDS [address] [place] [id number] [email or web address] Consulting Physician Dental Oncology 12/25/21 Yosvany Cole MD [address] [place] [phone] [email or web address] Consulting Physician Internal Medicine 10/10/19 Farnaz Maza MD [address] [place] [phone] [email or web address] Consulting Physician Neuro-Oncology 09/01/22 Jerry Angeles MD [address] [place] [phone] [email or web address] Consulting Physician Internal Medicine 04/21/22 Ignacio Mendoza MD [address] [place] [id number] [email or web address] Consulting Physician Endocrinology 08/14/21 Jean Watkins MD [address] [place] [phone] [email or web address] Consulting Physician Plastic and Reconstructive Surgery 10/12/19 Eunice Finn MD [address] [place] [address] [email or web address] Consulting Physician Radiation Oncology 10/24/19
--- NOTE | 2024-09-14 12:57 | RAD REPORT ---
EXAMINATION: CT stroke brain WITHOUT CONTRAST CLINICAL INDICATION: Female, 74 years old.STROKE ALERT TECHNIQUE: Axial CT images from the skull base to the vertex without intravenous contrast. Coronal an d sagittal reformatted images were created from the data set. One or more of the following dose reduction techniques were used: Automated exposure control, adjustment of the mA and/or kV according to patient size, and/or iterative reconstruction. Unless otherwise specified, incidental findings do not require dedicated imaging follow-up. [id number]. COMPARISON: No prior exam. FINDINGS: INTRACRANIAL: No acute intracranial hemorrhage. No hydrocephalus. No mass effect or midline shift. No significant white matter disease.Likely encephalomalacia at the inferior left frontal lobe and left temporal lobe. This may be from remote trauma. VASCULATURE: No visualized abnormalities in the arteries or dural venous sinuses. SCALP/SKULL: No significant soft tissue or osseous abnormalities. SINUSES: The visualized paranasal sinuses and mastoid air cells are predominantly clear. IMPRESSION: No acute intracranial abnormality. THIS REPORT CONTAINS FINDINGS THAT MAY BE CRITICAL TO PATIENT CARE. The emergent findings were commun icated to Dr. Gutiérrez on 09/14/2024 12:55 PM.
--- NOTE | 2024-09-14 13:00 | RAD REPORT ---
EXAMINATION: CTA NECK CLINICAL INDICATION: Female, 74 years old. stroke TECHNIQUE: Axial CT images were obtained from the aortic arch to the skull base after intravenous con trast utilizing angiographic protocol with 3D post-processing (maximum intensity projection images, volume rendered images and/or shaded surface rendered images). One or more of the following dose redu ction techniques were used: Automated exposure control, adjustment of the mA and/or kV according to patient size, and/or iterative reconstruction. Unless otherwise specified, incidental findings do not require dedicated imaging follow-up. [id number]. NASCET criteria used. Mild 0-49% stenosis Moderate 50-69% stenosis Severe 70-99% stenosis COMPARISON: No prior exam. FINDINGS: AORTA: The imaged aortic arch is normal. CCA: The common carotid arteries are patent and normal in caliber. ICA/ECA: Bilateral internal and external carotid arteries are patent. There is no significant interna l carotid artery stenosis. Where applicable, degree of stenosis is measured using NASCET-like criteria. VERTEBRAL: The cervical vertebral arteries are patent and codominant. SOFT TISSUE: 12 mm left thyroid nodule. Further evaluation by thyroid US recommended. The visualized lung apices are clear. 3D images confirm these findings. IMPRESSION: No flow-limiting stenosis or dissection identified within the neck.
--- NOTE | 2024-09-14 13:02 | RAD REPORT ---
EXAMINATION: CTA HEAD CLINICAL INDICATION: Female, 74 years old. STROKE ALERT TECHNIQUE: Axial CT images were obtained through the head after intravenous contrast utilizing angiog raphic protocol with 3D post-processing (maximum intensity projection images, volume rendered images and/or shaded surface rendered images). One or more of the following dose reduction technique s were used: Automated exposure control, adjustment of the mA and/or kV according to patient size, and/or iterative reconstruction. Unless otherwise specified, incidental findings do not require dedic ated imaging follow-up. COMPARISON: No prior exam. FINDINGS: ICA: The petrous, cavernous, and supraclinoid segments of the bilateral internal carotid arteries dem onstrate calcified plaque but no flow-limiting stenosis.. The ophthalmic artery origins are visualized and normal. The posterior communicating arteries are patent. GEOFFREY: Anterior cerebral arteries are normal bilaterally. The anterior communicating artery is patent. MCA: Middle cerebral arteries are normal bilaterally. COLLECTIONS CURATOR: Posterior cerebral arteries are normal bilaterally. Vertebrobasilar: The vertebral arteries are patent. The basilar artery is normal in appearance. 3D images confirm these findings. IMPRESSION: No occlusion, aneurysm, or hemodynamically significant stenosis identified.
[2024-09-14 13:12] LABS: Absolute Eosinophils 0.3 K/uL (0-0.5); Absolute Monocytes 0.8 K/uL (0.1-1.3); Basophils % 0.2 % (0-1.3); Eosinophils % 2.4 % (0-4.4); Hematocrit 38.6 % (36.0-45.0); Hemoglobin 12.9 g/dL (12.0-15.0); Lymphocytes % 45.8 % (15.3-44.8); MCH 29.8 pg (27.0-35.0); MCHC 33.4 g/dL (32.0-36.0); MCV 89.2 fL (80-100); MPV 9.1 fL (7.6-11.3); Monocytes % 5.9 % (3.3-12.3); Neutrophils % 45.7 % (41.7-73.7); Nucleated Red Blood Cells % 0.1 % (0-0); Platelets 242 thou/uL (152-406); RBC Red Blood Cell Count 4.33 M/uL (3.86-4.86); Red Cell Distribution Width 13.5 % (12.1-15.2)
--- NOTE | 2024-09-14 13:18 | RAD REPORT ---
EXAM: Chest Single View HISTORY: stroke alert COMPARISON: 10/25/2023 FINDINGS: LUNGS/PLEURA: Nonspecific increased interstitial thickening bilaterally. MEDIASTINUM: The mediastinal silhouette is within normal limits. CARDIAC: The cardiac silhouette is within normal limits. UPPER ABDOMEN: No significant abnormality. BONES: No acute abnormality. Remote right-sided rib fractures. LINES/TUBES/OTHER: N/A IMPRESSION: Nonspecific prominence of the pulmonary interstitium. This could reflect either some mild edema or in fectious/inflammatory process. No consolidative airspace disease.
[2024-09-14 13:26] LABS: PT Prothrombin Time 11.9 SECONDS (9.4-12.5); PTT, Activated Partial Thromb 27.5 SECONDS (24.3-36.9); Protime INR 1.13
[2024-09-14 13:31] LABS: ALT/SGPT 26 U/L (13-56); AST/SGOT 23 U/L (15-37); Albumin 3.7 g/dL (3.4-5.0); Albumin/Globulin Ratio 0.9 (1.1-1.8); Alkaline Phosphatase 69 U/L (45-117); Anion Gap 12.5 mEq/L (5.0-15.0); BUN Blood Urea Nitrogen 12 mg/dL (7-18); Bicarbonate 26 mEq/L (21-32); Bilirubin Direct < 0.2 mg/dL (0-0.2); Bilirubin Indirect, Calculated 0.1 mg/dL (0.2-0.8); Bilirubin Total 0.3 mg/dL (0.2-1.0); Globulin 3.9 g/dL (2.3-3.5); Glomerular Filtration Rate 86 ml/min (=/>90); Glucose Level 170 mg/dL (74-106); Magnesium 1.3 mg/dL (1.6-2.4); Potassium 3.5 mEq/L (3.5-5.1); Protein, Total 7.6 g/dL (6.4-8.2); Sodium Level 135 mEq/L (136-145); Troponin High Sensitivity 9.1 pg/mL (<58.9)
--- NOTE | 2024-09-14 14:15 | EDPHYS ---
Physician Documentation [facility] Name: Kirsty Khan Age: 74 yrs Sex: Female : 1950 Arrival Date: 09/14/2024 Time: 12:21 Bed 3 Private MD: ED Physician Shahid Gutiérrez HPI: 09/14 12:41 This 74 yrs old Female presents to ER via Wheelchair with complaints of Slurred Speech. 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 Patient also fell asleep in her vehicle. All symptoms have resolved now per and son. Patient is having no other symptoms including headache, neck pain, chest pain, shortness breath, back pain, abdominal pain, nausea, vomiting, diarrhea, syncope, near syncope, motor weakness, reported trauma, known sick contacts, fever, travel history, prolonged immobilization, or any other signs or symptoms on ROS at this time.. Historical: - Allergies: 12:26 Aspirin; ll1 12:26 Augmentin; ll1 - PMHx: 12:26 Diabetes - NIDDM; DVT (Unknown); Hypothyroidism; Right- Breast Cancer (Unknown); ll1 - PSHx: 12:26 malou mastectomy; ll1 - Immunization history:: Adult Immunizations up to date. - Infectious Disease History:: Denies. - Social history:: Smoking status: Patient denies any tobacco usage or history of. ROS: 12:42 Constitutional: Negative for fever, chills, and weight loss, Eyes: Negative for injury, sp3 pain, redness, and discharge, ENT: Negative for injury, pain, and discharge, Neck: Negative for injury, pain, and swelling, Cardiovascular: Negative for chest pain, palpitations, and edema, Respiratory: Negative for shortness of breath, cough, wheezing, and pleuritic chest pain, Abdomen/GI: Negative for abdominal pain, nausea, vomiting, diarrhea, and constipation, : Negative for injury, bleeding, discharge, and swelling, MS/Extremity: Negative for injury and deformity, Skin: Negative for injury, rash, and discoloration, Psych: Negative for depression, anxiety, suicide ideation, homicidal ideation, and hallucinations, Allergy/Immunology: Negative for hives, rash, and allergies, Endocrine: Negative for neck swelling, polydipsia, polyuria, polyphagia, and marked weight changes, Hematologic/Lymphatic: Negative for swollen nodes, abnormal bleeding, and unusual bruising, 12:42 All other systems are negative, Exam: 12:42 Constitutional: This is a well developed, well nourished patient who is awake, alert, sp3 and in no acute distress. Head/Face: Normocephalic, atraumatic. Eyes: Pupils equal round and reactive to light, extra-ocular motions intact. Lids and lashes normal. Conjunctiva and sclera are non-icteric and not injected. Cornea within normal limits. Periorbital areas with no swelling, redness, or edema. ENT: Nares patent. No nasal discharge, no septal abnormalities noted. External auditory canals are clear. Oropharynx with no redness, swelling, or masses, exudates, or evidence of obstruction, uvula midline. Mucous membranes moist. Neck: Trachea midline, no thyromegaly or masses palpated, and no cervical lymphadenopathy. Supple, full range of motion without nuchal rigidity, or vertebral point tenderness. No Meningismus. Chest/axilla: Normal chest wall appearance and motion. Nontender with no deformity. No lesions are appreciated. Cardiovascular: Regular rate and rhythm with a normal S1 and S2. No gallops, murmurs, or rubs. Normal PMI, no JVD. No pulse deficits. Respiratory: Lungs have equal breath sounds bilaterally, clear to auscultation and percussion. No rales, rhonchi or wheezes noted. No increased work of breathing, no retractions or nasal flaring. Abdomen/GI: Soft, non-tender, with normal bowel sounds. No distension or tympany. No guarding or rebound. No evidence of tenderness throughout. Back: No spinal tenderness. No costovertebral tenderness. Full range of motion. Skin: Warm, dry with normal turgor. Normal color with no rashes, no lesions, and no evidence of cellulitis. MS/ Extremity: Pulses equal, no cyanosis. Neurovascular intact. Full, normal range of motion. Neuro: Awake and alert, GCS 15, oriented to person, place, time, and situation. Cranial nerves II-XII grossly intact. Motor strength 5/5 in all extremities. Sensory grossly intact. Cerebellar exam normal. Normal gait. Psych: Awake, alert, with orientation to person, place and time. Behavior, mood, and affect are within normal limits. 13:24 ECG was reviewed by the Attending Physician. EKG demonstrates normal sinus rhythm at 90 sp3 bpm with normal intervals, normal QRS, normal axis and nonspecific diffuse ST/T segment changes without evidence of acute ischemia Vital Signs: 12:34 BP 142 / 79; Pulse 86; Resp 18; Temp 97.9; Pulse Ox 98% ; Weight 83.91 kg; Height 5 ft. ll1 7 in. ; Pain 0/10; 12:45 BP 136 / 81; Pulse 95; Resp 15; Pulse Ox 96% ; cm10 13:00 BP 124 / 72; Pulse 88; Resp 15; Pulse Ox 97% ; cm10 13:14 Weight 83 kg (M); cm10 13:15 BP 128 / 72; Pulse 84; Resp 16; Pulse Ox 96% on R/A; cm10 13:30 BP 122 / 72; Pulse 89; Resp 16; Pulse Ox 96% on R/A; cm10 13:45 BP 114 / 64; Pulse 85; Resp 15; Pulse Ox 96% ; cm10 14:00 BP 116 / 78; Pulse 86; Resp 17; Pulse Ox 96% on R/A; cm10 14:15 BP 116 / 2; Pulse 89; Resp 15; Pulse Ox 94% ; cm10 14:30 BP 102 / 59; Pulse 82; Resp 15; Pulse Ox 97% ; cm10 12:34 Body Mass Index 28.97 (83.00 kg, 170.18 cm) ll1 12:34 Pain Scale: Adult ll1 NIH Stroke Scale Scores: 12:33 NIHSS Score: 0 cm10 MDM: 12:37 Medical Screening Exam initiated sp3 12:43 Data reviewed: vital signs, nurses notes, old medical records, lab test result(s), EKG, sp3 radiologic studies. ED course: Stroke alert called by nursing staff due to reported slurred speech. All symptoms are now resolved and NIH stroke scale is 0. However CT head and angiograms ordered coupled with standard stroke workup. Differential diagnosis includes TIA, CVA, metabolic derangement, other intracranial process, among others. I am not highly suspicious of ACS, sepsis, vascular compromise or dissection, or any other critical process at this time. Vital signs are normal. Disposition pending workup and patient course with possible discharge versus admission depending on course and results.. 14:14 ED course: Discussed with Dr. Alex who suggest putting on an antiplatelet agent and sp3 following up in the office. We will refill Xarelto 15 mg daily and add Plavix 75 mg daily for 2 weeks until she can see Dr. Alex. I have counseled patient on monitoring stools and fall precautions.. 09/14 12:36 Order name: Basic Metabolic Panel; Complete Time: 13:34 sp3 09/14 12:36 Order name: CBC with Diff; Complete Time: 13:34 sp3 09/14 12:36 Order name: Hepatic Function; Complete Time: 13:34 sp3 09/14 12:36 Order name: High Sensitivity Troponin; Complete Time: 13:34 sp3 09/14 12:36 Order name: Magnesium; Complete Time: 13:34 sp3 09/14 12:36 Order name: Protime (+inr); Complete Time: 13:34 sp3 09/14 12:36 Order name: Ptt, Activated; Complete Time: 13:34 sp3 09/14 13:14 Order name: Glucose, Ancillary Testing; Complete Time: 13:20 EDMS 09/14 12:36 Order name: CT Head Angio; Complete Time: 13:04 sp3 09/14 12:36 Order name: CT Neck Angio; Complete Time: 13:04 sp3 09/14 12:36 Order name: CT Stroke Brain w/o Contrast; Complete Time: 13:04 sp3 09/14 12:36 Order name: Stroke CXR 1 View; Complete Time: 13:20 sp3 09/14 12:36 Order name: Cardiac monitoring; Complete Time: 13: sp3 09/14 12:36 Order name: EKG - Nurse/Tech; Complete Time: 13:26 sp3 09/14 12:36 Order name: IV Saline Lock; Complete Time: 13: sp3 09/14 12:36 Order name: Labs collected and sent; Complete Time: 13: sp3 09/14 12:36 Order name: NPO; Complete Time: 13:26 sp3 09/14 12:36 Order name: O2 Per Protocol; Complete Time: 13: sp3 09/14 12:36 Order name: O2 Sat Monitoring; Complete Time: 13:11 sp3 09/14 12:36 Order name: Stroke Swallow Screen; Complete Time: 13:12 sp3 Administered Medications: No medications were administered Point of Care Testing: Blood Glucose: 13:12 Blood Glucose: 163 mg/dL; cm10 Ranges: Critical Glucose Levels:Adult <50 mg/dl or >400 mg/dl <40 mg/dl or >180 mg/dl Disposition Summary: 09/14/24 14:15 Discharge Ordered Notes: Location: Home sp3 Condition: Stable sp3 Diagnosis - Transient cerebral ischemic attack, unspecified sp3 Followup: sp3 - With: Ortiz Alex MD - When: Upon discharge from the Emergency Department - Reason: Recheck today's complaints Discharge Instructions: - Discharge Summary Sheet sp3 - Transient Ischemic Attack sp3 Forms: - Medication Reconciliation Form sp3 - Antibiotic Education sp3 - Prescription Opioid Use sp3 - Patient Portal Instructions sp3 - Leadership Thank You Letter sp3 Prescriptions: - Plavix 75 mg Oral tablet - take 1 tablet ORAL route once daily; 14 tablet; Refills: 0, Product Selection sp3 Permitted - Xarelto 15 mg Oral tablet - take 1 tablet ORAL route 2 times per day; 30 tablet; Refills: 0, Product sp3 Selection Permitted NIH Stroke Scale - NIH Stroke Score Date: 09/14/2024 Time: 12:33 Total Score = 0 10. Dysarthria (speech clarity - read or repeat words) - 0(Normal) 11. Extinction and Inattention (visual/tactile/auditory/spatial/personal) - 0(No abnormality) 1a. Level of Consciousness (LOC) - 0(Alert) 1b. Level of Consciousness (LOC) (Month \\T\\ Age) - 0(Both) 1c. LOC Commands (Open \\T\\ Closes Eyes/Youth Teacher) - 0(Both) 2. Best Gaze (Lateral Gaze Paresis) - 0(Normal) 3. Visual Field Loss - 0(No visual loss) 4. Facial Palsy - 0(Normal) 5a. Left Arm: Motor (10-second hold) - 0(No drift) 5b. Right Arm: Motor (10-second hold) - 0(No drift) 6a. Left Leg: Motor (5-second hold - always test supine) - 0(No drift) 6b. Right Leg: Motor (5-second hold - always test supine) - 0(No drift) 7. Limb Ataxia (finger/nose \\T\\ heel/jordan - test with eyes open) - 0(Absent) 8. Sensory Loss (pinprick arms/legs/face) - 0(Normal) 9. Best Language: Aphasia (description/naming/reading) - 0(No aphasia) Initials: cm10 Signatures: Dispatcher [employer] EDMS Fan Nobles RN RN ll1 Shahid Gutiérrez MD MD sp3 Lacey Mejia RN RN cm10 Corrections: (The following items were deleted from the chart) 12:37 12:37 BASIC METABOLIC PANEL+C.LAB.BRZ ordered. EDMS EDMS 12:37 12:37 CBC+H.LAB.BRZ ordered. EDMS EDMS 12:37 12:37 HEPATIC FUNCTION+C.LAB.BRZ ordered. EDMS EDMS 12:37 12:37 Troponin High Sensitivity+C.LAB.BRZ ordered. EDMS EDMS 12:37 12:37 MAGNESIUM+C.LAB.BRZ ordered. EDMS EDMS 12:37 12:37 PROTIME (+INR)+COAG.LAB.BRZ ordered. EDMS EDMS 12:37 12:37 PTT, ACTIVATED+COAG.LAB.BRZ ordered. EDMS EDMS 12:37 12:37 Head Angio+CT.RAD.BRZ ordered. EDMS EDMS 12:37 12:37 Neck Angio+CT.RAD.BRZ ordered. EDMS EDMS 12:37 12:37 CT-STROKE BRAIN W/O CONTRAST+CT.RAD.BRZ ordered. EDMS EDMS 12:37 12:37 Chest Single View+RAD.RAD.BRZ ordered. EDMS EDMS
--- NOTE | 2024-09-14 14:15 | ER ---
Nurse's Notes [facility] Name: Kirsty Khan Age: 74 yrs Sex: Female : 1950 Arrival Date: 09/14/2024 Time: 12:21 Bed 3 Private MD: Diagnosis: Transient cerebral ischemic attack, unspecified Presentation: 09/14 12:34 Chief complaint: Patient states: Slurred speech started about 10 AM. Feels very weak ll1 and dizzy. Speech is back to normal now per son. States she has had N/V and upper abdominal pain from a known gallbladder problem. Coronavirus screen: Client denies travel out of the [place] in the last 14 days. fatigue, headache, nausea, vomiting. Client presents with at least one sign or symptom that may indicate coronavirus-19. Standard/surgical mask placed on the client. Ebola Screen: Patient denies travel to an Ebola-affected area in the 21 days before illness onset. No acute neurological deficit is noted. Initial Sepsis Screen: Does the patient meet any 2 criteria? No. Patient's initial sepsis screen is negative. Does the patient have a suspected source of infection? No. Patient's initial sepsis screen is negative. Risk Assessment: Do you want to hurt yourself or someone else? Patient reports no desire to harm self or others. Onset of symptoms was September 14, 2024. 12:34 Method Of Arrival: Wheelchair ll1 12:34 Acuity: BIJAL 2 ll1 14:46 Pre-hospital glucose is not applicable to this patient. cm10 Triage Assessment: 12:36 General: Appears distressed, uncomfortable, ill, Behavior is calm, cooperative, ll1 appropriate for age. Pain: Denies pain. Neuro: Reports dizziness, headache weakness slurred speech. GI: Reports upper abdominal pain, cramping, nausea, vomiting. 12:36 The onset of the patients symptoms was September 14, 2024 at 09:30. cm10 Stroke Activation: Symptom onset < 3 hours Physician: ED Attending; Name: ; Notified At: ; Arrived At: Physician: Mid-Level Provider; Name: ; Notified At: ; Arrived At: Physician: [not used]; Name: ; Notified At: ; Arrived At: Physician: [not used]; Name: ; Notified At: ; Arrived At: Physician: [not used]; Name: ; Notified At: ; Arrived At: Historical: - Allergies: 12:26 Aspirin; ll1 12:26 Augmentin; ll1 - PMHx: 12:26 Diabetes - NIDDM; DVT (Unknown); Hypothyroidism; Right- Breast Cancer (Unknown); ll1 - PSHx: 12:26 malou mastectomy; ll1 - Immunization history:: Adult Immunizations up to date. - Infectious Disease History:: Denies. - Social history:: Smoking status: Patient denies any tobacco usage or history of. Screenin:21 [facility] ED Fall Risk Assessment (Adult) History of falling in the last 3 months, cm10 including since admission No falls in past 3 months (0 pts) Confusion or Disorientation No (0 pts) Intoxicated or Sedated No (0 pts) Impaired Gait No (0 pts) Mobility Assist Device Used No (0 pt) Altered Elimination No (0 pt) Score/Fall Risk Level 0 - 2 = Low Risk Oriented to surroundings, Maintained a safe environment, Hourly rounding (assess needs \T\ fall precautionary measures) done. Abuse screen: Denies threats or abuse. Denies injuries from another. Nutritional screening: No deficits noted. Tuberculosis screening: No symptoms or risk factors identified. Assessment: 12:33 VAN Scoring: Arm Drift: Patients demonstrates NO arm weakness. Patient is VAN Negative. cm10 Visual Disturbance: No visual disturbance noted. Aphasia: No aphasia noted. Neglect: No neglect noted. 13:15 [place] Swallow Protocol Exclusion Criteria: Unable to remain alert for testing: No NPO cm10 for medical/surgical reason by provider order No Tracheostomy tube present No No thin liquids due to preexisting dysphagia/baseline modified diet thickened liquids No Exclusion Criteria Result: Proceed Brief Cognitive Screen What is your name? Normal, Where are you right now? Normal, What year is it? Normal. Oral Mechanism Examination Facial Symmetry: Normal, Motion: Normal, Lip Closure: Normal, Oral Mechanism Result: Normal. 3 oz Water Swallow Challenge: Pt able to drink all water without stopping, coughing, choking or throat clearing: Yes Result: PEE FU Notified: Shahid Gutiérrez MD. 13:20 TNKase (Tenecteplase) Screening: Contraindications: Is the patient on Aspirin, Heparin, cm10 or Warfarin: Yes. Not Applicable. 14:21 Reassessment: Patient appears in no apparent distress at this time. Patient and/or cm10 family updated on plan of care and expected duration. Pain level reassessed. Patient is alert, oriented x 3, equal unlabored respirations, skin warm/dry/pink. Vital Signs: 12:34 BP 142 / 79; Pulse 86; Resp 18; Temp 97.9; Pulse Ox 98% ; Weight 83.91 kg; Height 5 ft. ll1 7 in. ; Pain 0/10; 12:45 BP 136 / 81; Pulse 95; Resp 15; Pulse Ox 96% ; cm10 13:00 BP 124 / 72; Pulse 88; Resp 15; Pulse Ox 97% ; cm10 13:14 Weight 83 kg (M); cm10 13:15 BP 128 / 72; Pulse 84; Resp 16; Pulse Ox 96% on R/A; cm10 13:30 BP 122 / 72; Pulse 89; Resp 16; Pulse Ox 96% on R/A; cm10 13:45 BP 114 / 64; Pulse 85; Resp 15; Pulse Ox 96% ; cm10 14:00 BP 116 / 78; Pulse 86; Resp 17; Pulse Ox 96% on R/A; cm10 14:15 BP 116 / 2; Pulse 89; Resp 15; Pulse Ox 94% ; cm10 14:30 BP 102 / 59; Pulse 82; Resp 15; Pulse Ox 97% ; cm10 12:34 Body Mass Index 28.97 (83.00 kg, 170.18 cm) ll1 12:34 Pain Scale: Adult ll1 NIH Stroke Scale Scores: 12:33 NIHSS Score: 0 cm10 ED Course: 12:22 Patient arrived in ED. mr 12:26 Arm band placed on Patient placed in an exam room, on a stretcher. ll1 12:27 Shahid Gutiérrez MD is Attending Physician. sp3 12:36 Triage completed. ll1 12:54 CT Head Angio In Process Unspecified. EDMS 12:54 CT Neck Angio In Process Unspecified. EDMS 12:54 CT Stroke Brain w/o Contrast In Process Unspecified. EDMS 13:10 Stroke CXR 1 View In Process Unspecified. EDMS 13:10 Initial lab(s) drawn, by me, sent to lab. Inserted saline lock: 22 gauge in left cm10 forearm, using aseptic technique. Blood collected. Flushed with 10 mL NS. 13:11 Lacey Mejia, RN is Primary Nurse. cm10 13:12 Basic Metabolic Panel Sent. cm10 13:12 CBC with Diff Sent. cm10 13:12 Hepatic Function Sent. cm10 13:12 Magnesium Sent. cm10 13:12 High Sensitivity Troponin Sent. cm10 13:12 Protime (+inr) Sent. cm10 13:12 Ptt, Activated Sent. cm10 13:30 Patient has correct armband on for positive identification. Placed in gown. Bed in low cm10 position. Call light in reach. Side rails up X2. Provided Education on: ER process and procedures.. 13:30 Client placed on continuous cardiac and pulse oximetry monitoring. NIBP monitoring cm10 applied. residential monitor on. 13:30 EKG done, by ED staff, reviewed by Shahid Gutiérrez MD. cm10 14:15 Ortiz Alex MD is Referral Physician. sp3 14:45 No provider procedures requiring assistance completed. IV discontinued, intact, cm10 bleeding controlled, No redness/swelling at site. Pressure dressing applied. Administered Medications: No medications were administered Medication: 14:21 VIS not applicable for this client. cm10 Point of Care Testing: Blood Glucose: 13:12 Blood Glucose: 163 mg/dL; cm10 Ranges: Outcome: 14:15 Discharge ordered by MD. sp3 14:44 Patient left the ED. cm10 14:45 Discharged to home via wheelchair, with family, cm10 14:45 Condition: good 14:45 Discharge instructions given to patient, Instructed on discharge instructions, follow up and referral plans. medication usage, Demonstrated understanding of instructions, follow-up care, medications, Prescriptions given X 2, NIH Stroke Scale - NIH Stroke Score Date: 09/14/2024 Time: 12:33 Total Score = 0 10. Dysarthria (speech clarity - read or repeat words) - 0(Normal) 11. Extinction and Inattention (visual/tactile/auditory/spatial/personal) - 0(No abnormality) 1a. Level of Consciousness (LOC) - 0(Alert) 1b. Level of Consciousness (LOC) (Month \T\ Age) - 0(Both) 1c. LOC Commands (Open \T\ Closes Eyes/Off Premise Service Representative) - 0(Both) 2. Best Gaze (Lateral Gaze Paresis) - 0(Normal) 3. Visual Field Loss - 0(No visual loss) 4. Facial Palsy - 0(Normal) 5a. Left Arm: Motor (10-second hold) - 0(No drift) 5b. Right Arm: Motor (10-second hold) - 0(No drift) 6a. Left Leg: Motor (5-second hold - always test supine) - 0(No drift) 6b. Right Leg: Motor (5-second hold - always test supine) - 0(No drift) 7. Limb Ataxia (finger/nose \T\ heel/jordan - test with eyes open) - 0(Absent) 8. Sensory Loss (pinprick arms/legs/face) - 0(Normal) 9. Best Language: Aphasia (description/naming/reading) - 0(No aphasia) Initials: cm10 Signatures: Dispatcher [employer] EDMS AnantTeodora, Reg Reg mr Fan Nobles, RN RN ll1 Shahid Gutiérrez MD MD sp3 Lacey Mejia RN RN cm10 Corrections: (The following items were deleted from the chart) 12:38 12:34 Pulse 86bpm; Resp 18bpm; Pulse Ox 98%; Temp 97.9F; 83.91 kg; Height 5 ft. ll1 7 in.; BMI: 28.9; Pain 0/10, Adult; ll1 13:22 13:20 TNKase (Tenecteplase) Screening: Not Applicable cm10 cm10 14:22 13:30 Inserted saline lock: 22 gauge in left forearm, using aseptic technique. cm10 Blood collected. Flushed with 10 mL NS cm10 14:22 13:30 Initial lab(s) drawn, by co, sent to lab. cm10 cm10
[2024-09-15 02:59] VITALS: BP 116/78; TEMP 97.9; O2SAT 96
== END 2024-09-14 14:44 | disposition home or self-care (01) ==
LOC: ER 12:21
DX: G45.9 Transient cerebral ischemic attack, unspecified (principal); E11.9 Type 2 diabetes mellitus without complications; Z85.3 Personal history of malignant neoplasm of breast; Z86.718 Personal history of other venous thrombosis and embolism; Z79.01 Long term (current) use of anticoagulants
CPT/HCPCS: 85025; 80048; 36415; 83735; 85610; 82947; 80076; 85730; 84484; 70496; 70498; 70450; 71045; 99285; Q9967